=== PATIENT | male | born 1960 | race Caucasian/White ===

== ENCOUNTER 2020-06-04 06:02 | Outpatient (REF) | payer OTHER, SELFPAY | END 2020-06-04 06:03 | disposition home or self-care (01) | LOC: HO.HMGCLDS 06:02 | PROVIDERS: PCP Internal Medicine; Visit Provider Internal Medicine | DX: Z20.828 Contact with and (suspected) exposure to other viral communicable diseases (principal) | CPT/HCPCS: C9803; U0003 ==

== ENCOUNTER 2020-07-14 15:10 | Outpatient (REF) | payer OTHER, SELFPAY ==
--- NOTE | 2020-07-14 15:17 | XR_ITS ---
EXAMINATION: XR WRIST, RIGHT CLINICAL INFORMATION: G56.01 - Carpal tunnel syndrome, right upper limb COMPARISON: None TECHNIQUE: Right wrist is imaged in 4 views. FINDINGS: There is no acute or healing fracture, dislocation, destructive process. The ulnar variance is neutral. There are degenerative changes lateral carpus involving the first carpometacarpal joint and triscaphe joint. These sites show mild joint narrowing and mild subchondral sclerosis and spurring. There are no erosive changes or chondrocalcinosis. The pronator quadratus fat pad appears normal. There is a small benign oval calcification lateral soft tissues distal forearm under 5 mm. XR/XR wrist RT w scaphoid IMPRESSION: Degenerative changes lateral carpus involving first carpometacarpal joint and triscaphe joint.
== END 2020-07-14 15:11 | disposition home or self-care (01) ==
LOC: HO.HMGCX 15:10
PROVIDERS: PCP Internal Medicine; Visit Provider Nurse Practitioner Family
DX: G56.01 Carpal tunnel syndrome, right upper limb (principal)
CPT/HCPCS: 73110

== ENCOUNTER → 2020-08-13 09:10 | Outpatient (BNVA) | payer OTHER, SELFPAY | PROVIDERS: Visit Provider Orthopaedic Surgery | DX: Z76.89 Persons encountering health services in other specified circumstances (principal) ==

== ENCOUNTER 2020-09-25 10:22 | Outpatient (REF) | payer OTHER, SELFPAY ==
--- NOTE | 2020-09-25 10:25 | EMG_ITS ---
Right median and ulnar motor and sensory studies were performed. Right radial sensory study was performed and paraspinal muscles were tested. IMPRESSION: [id number] right median neuropathy across carpal tunnel. MD LAMAR Tolbert/CHAVA / [id number]
== END 2020-09-25 10:23 | disposition home or self-care (01) ==
LOC: HO.NEURO 10:22
PROVIDERS: Visit Provider Orthopaedic Surgery
DX: R20.0 Anesthesia of skin (principal); R20.2 Paresthesia of skin; M79.641 Pain in right hand
CPT/HCPCS: 95860; 95885; 95909

== ENCOUNTER 2021-01-01 11:05 | Outpatient (REF) | payer OTHER, SELFPAY ==
[2021-01-01 14:02] LABS: Estimated Average Glucose 157 mg/dL; Hemoglobin A1c % 7.1 %
[2021-01-01 14:24] LABS: Alanine Aminotransferase 47 U/L (0-40); Albumin Level 4.2 g/dL (3.5-5.0); Alkaline Phosphatase 57 U/L (39-117); Anion Gap 14 (12-20); Aspartate Amino Transferase 50 U/L (5-37); Bilirubin Total 0.8 mg/dL (0.0-1.0); Blood Urea Nitrogen 11 mg/dL (9-16); Calcium 9.5 mg/dL (8.4-10.2); Carbon Dioxide 20 mmol/L (22-29); Chloride 108 mmol/L (96-108); Cholesterol 180 mg/dL; Creatinine Urine 72.44 mg/dL; Estimated Glomerular Filt Rate > 60; Glucose Fasting 136 mg/dL (60-99); HDL Cholesterol 35 mg/dL; LDL Cholesterol Calculated 104 mg/dl; Microalbum/Creatinine Ratio Ur 16.5 ug/mg cr; Potassium 4.4 mmol/L (3.3-5.1); Sodium 138 mmol/L (135-145); Total Protein 7.8 g/dL (6.5-8.0); Triglycerides 208 mg/dL
== END 2021-01-01 11:06 | disposition home or self-care (01) ==
LOC: HO.HMGCLDS 11:05
PROVIDERS: PCP Internal Medicine; Visit Provider Internal Medicine
DX: E13.9 Other specified diabetes mellitus without complications (principal); E66.9 Obesity, unspecified; Z72.0 Tobacco use
CPT/HCPCS: 36415; 80053; 80061; 82043; 83036

== ENCOUNTER 2021-04-07 07:52 | Outpatient (REF) | payer OTHER, SELFPAY ==
[2021-04-07 12:34] LABS: Alanine Aminotransferase 48 U/L (0-40); Albumin Level 4.2 g/dL (3.5-5.0); Alkaline Phosphatase 49 U/L (39-117); Anion Gap 14 (12-20); Aspartate Amino Transferase 37 U/L (5-37); Bilirubin Total 0.7 mg/dL (0.0-1.0); Blood Urea Nitrogen 16 mg/dL (9-16); Calcium 9.5 mg/dL (8.4-10.2); Carbon Dioxide 22 mmol/L (22-29); Chloride 107 mmol/L (96-108); Estimated Glomerular Filt Rate > 60; Glucose Random 112 mg/dL (60-115); Potassium 4.2 mmol/L (3.3-5.1); Sodium 139 mmol/L (135-145); Total Protein 7.4 g/dL (6.5-8.0)
[2021-04-07 12:35] LABS: Estimated Average Glucose 126 mg/dL
== END 2021-04-07 07:53 | disposition home or self-care (01) ==
LOC: HO.HMGCLDS 07:52
PROVIDERS: PCP Internal Medicine; Visit Provider Internal Medicine
DX: E13.9 Other specified diabetes mellitus without complications (principal); E66.9 Obesity, unspecified; Z72.0 Tobacco use
CPT/HCPCS: 36415; 80053; 83036

== ENCOUNTER 2021-08-20 09:21 | Outpatient (REF) | payer OTHER, SELFPAY ==
[2021-08-20 11:45] LABS: Estimated Average Glucose 117 mg/dL; Hemoglobin A1c % 5.7 %
[2021-08-20 11:46] LABS: Alanine Aminotransferase 43 U/L (0-40); Albumin Level 4.2 g/dL (3.5-5.0); Alkaline Phosphatase 51 U/L (39-117); Anion Gap 12 (12-20); Aspartate Amino Transferase 35 U/L (5-37); Bilirubin Total 0.7 mg/dL (0.0-1.0); Blood Urea Nitrogen 17 mg/dL (9-16); Calcium 9.5 mg/dL (8.4-10.2); Carbon Dioxide 25 mmol/L (22-29); Chloride 106 mmol/L (96-108); Estimated Glomerular Filt Rate > 60; Glucose Random 104 mg/dL (60-115); Potassium 4.4 mmol/L (3.3-5.1); Sodium 139 mmol/L (135-145); Total Protein 7.5 g/dL (6.5-8.0)
== END 2021-08-20 09:22 | disposition home or self-care (01) ==
LOC: HO.HMGCLDS 09:21
PROVIDERS: PCP Internal Medicine; Visit Provider Internal Medicine
DX: E13.9 Other specified diabetes mellitus without complications (principal); E66.9 Obesity, unspecified; Z72.0 Tobacco use
CPT/HCPCS: 36415; 80053; 83036

== ENCOUNTER 2021-11-28 08:14 | Outpatient (REF) | payer OTHER, SELFPAY ==
[2021-11-28 11:25] LABS: Estimated Average Glucose 114 mg/dL; Hemoglobin A1c % 5.6 %
[2021-11-28 11:33] LABS: Alanine Aminotransferase 45 U/L (0-40); Albumin Level 4.1 g/dL (3.5-5.0); Alkaline Phosphatase 47 U/L (39-117); Anion Gap 13 (12-20); Aspartate Amino Transferase 34 U/L (5-37); Bilirubin Total 0.8 mg/dL (0.0-1.0); Blood Urea Nitrogen 17 mg/dL (9-16); Calcium 9.6 mg/dL (8.4-10.2); Carbon Dioxide 22 mmol/L (22-29); Chloride 107 mmol/L (96-108); Estimated Glomerular Filt Rate > 60; Glucose Random 105 mg/dL (60-115); Potassium 4.2 mmol/L (3.3-5.1); Sodium 138 mmol/L (135-145); Total Protein 7.1 g/dL (6.5-8.0)
[2021-11-28 11:35] LABS: Creatinine Urine 153.13 mg/dL; Microalbum/Creatinine Ratio Ur 9.1 ug/mg cr
== END 2021-11-28 08:15 | disposition home or self-care (01) ==
LOC: HO.HMGCLDS 08:14
PROVIDERS: Visit Provider Internal Medicine
DX: E13.9 Other specified diabetes mellitus without complications (principal); E66.9 Obesity, unspecified; Z72.0 Tobacco use
CPT/HCPCS: 36415; 80053; 82043; 83036

== ENCOUNTER 2022-11-04 07:36 | Outpatient (REF) | payer OTHER, SELFPAY ==
[2022-11-04 11:12] LABS: MANUAL DIFF FLAG NO
[2022-11-04 11:22] LABS: Basophils Absolute Auto 0.1 X10*3/uL (0.0-0.2); Basophils Percent Auto 1.1 % (0-2); Eosinophils Absolute Auto 0.4 X10*3/uL (0.0-0.4); Eosinophils Percent Auto 6.2 % (0-4); Hematocrit 45.1 % (42.0-52.0); Imm Gran Abs Auto 0.02 X10*3/uL (0.00-0.03); Imm Gran Pct Auto 0.3 % (0.0-0.4); Lymphocytes Absolute Auto 2.7 X10*3/uL (1.2-4.9); Lymphocytes Percent Auto 41.4 % (20-40); Mean Corpuscular HGB Conc 33.3 g/dl (31.0-36.0); Mean Corpuscular Hemoglobin 29.2 pg (27.0-33.0); Mean Corpuscular Volume 87.9 fL (80.0-98.0); Mean Platelet Volume 9.8 fL (9.4-12.4); Monocytes Absolute Auto 0.5 X10*3/uL (0.1-1.2); Monocytes Percent Auto 7.6 % (2-11); Neutrophils Absolute Auto 2.9 x10*3/uL (2.0-8.3); Neutrophils Percent Auto 43.4 % (45-73); Platelet Count 259 X10*3/uL (160-400); Red Blood Count 5.13 X10*6/uL (4.60-5.80); Red Cell Distribution Width 13.9 % (11.0-16.0); White Blood Count 6.6 X10*3/uL (4.8-10.8)
[2022-11-04 11:47] LABS: Alanine Aminotransferase 44 U/L (0-40); Alkaline Phosphatase 56 U/L (39-117); Anion Gap 13 (12-20); Aspartate Amino Transferase 33 U/L (5-37); Bilirubin Total 0.7 mg/dL (0.0-1.0); Blood Urea Nitrogen 12 mg/dL (9-16); Calcium 9.4 mg/dL (8.4-10.2); Carbon Dioxide 22 mmol/L (22-29); Chloride 109 mmol/L (96-108); Cholesterol 184 mg/dL; Estimated Glomerular Filt Rate > 60; Glucose Fasting 118 mg/dL (60-99); Glucose Random 118 mg/dL (60-115); HDL Cholesterol 37 mg/dL; LDL Cholesterol Calculated 105 mg/dl; Potassium 4.2 mmol/L (3.3-5.1); Sodium 140 mmol/L (135-145); Total Protein 7.1 g/dL (6.5-8.0); Triglycerides 210 mg/dL
[2022-11-04 11:55] LABS: Estimated Average Glucose 143 mg/dL; Hemoglobin A1c % 6.6 %
[2022-11-04 12:32] LABS: Creatinine Urine 147.49 mg/dL; Microalbum/Creatinine Ratio Ur 12.8 ug/mg cr
== END 2022-11-04 07:37 | disposition home or self-care (01) ==
LOC: HO.HMGCLDS 07:36
PROVIDERS: PCP Internal Medicine; Visit Provider Internal Medicine
DX: E13.9 Other specified diabetes mellitus without complications (principal); E66.9 Obesity, unspecified; R03.0 Elevated blood-pressure reading, without diagnosis of hypertension; Z72.0 Tobacco use
CPT/HCPCS: 36415; 80053; 80061; 82043; 83036; 85025

== ENCOUNTER 2023-02-23 09:47 | Outpatient (REF) | payer OTHER, SELFPAY ==
[2023-02-23 14:10] LABS: Estimated Average Glucose 143 mg/dL; Hemoglobin A1c % 6.6 %
[2023-02-23 14:40] LABS: Alanine Aminotransferase 43 U/L (0-40); Albumin Level 4.1 g/dL (3.5-5.0); Alkaline Phosphatase 51 U/L (39-117); Anion Gap 13 (12-20); Aspartate Amino Transferase 36 U/L (5-37); Bilirubin Total 0.4 mg/dL (0.0-1.0); Blood Urea Nitrogen 13 mg/dL (9-16); Calcium 9.7 mg/dL (8.4-10.2); Carbon Dioxide 23 mmol/L (22-29); Chloride 109 mmol/L (96-108); Estimated Glomerular Filt Rate > 60; Glucose Random 128 mg/dL (60-115); Potassium 4.5 mmol/L (3.3-5.1); Sodium 140 mmol/L (135-145); Total Protein 7.7 g/dL (6.5-8.0)
== END 2023-02-23 09:48 | disposition home or self-care (01) ==
LOC: HO.HMGCLDS 09:47
PROVIDERS: PCP Internal Medicine; Visit Provider Internal Medicine
DX: Z00.01 Encounter for general adult medical examination with abnormal findings (principal); E66.9 Obesity, unspecified; E13.9 Other specified diabetes mellitus without complications
CPT/HCPCS: 36415; 80053; 83036

== ENCOUNTER 2023-03-15 09:01 | Outpatient (AMB) | payer OTHER, SELFPAY ==
[2023-03-15 09:03] VITALS: BP 142/90; PULSE 83; O2SAT 96; BMI 35.7
--- NOTE | 2023-03-15 09:03 | MHC.PC.OV ---
Vital Signs 03/15/23 09:03 Height 5 ft 7 in Weight 228 lb 2 oz BMI 35.7 BP 142/90 H Blood Pressure Location Rt brachial Position Sitting Pulse 83 Pulse Source Pulse Oximeter Pulse Oximetry (%) 96 Oxygen Delivery Method Room Air Intake Visit Reasons: 4 month follow up DM Allergies No Known Allergies [No Known Allergies*] Allergy (Verified 03/15/23 09:05) Medication List - Last Reconciled 03/15/23 by Yemi Vinson MD lisinopril 2.5 mg PO DAILY 90 days metformin 1,000 mg PO ONCE 90 days Tobacco use date assessed: 03/15/23 Dental Screening Dental Screen Date: 03/15/23 Did you have a dental visit in the last 12 months?: Yes Did you have a dental problem in the last 6 months where you did not have access to dental care?: No Was dental information given to patient?: No HPI 4 month follow up DM HPI Details Patient is 61-year-old gentleman came in today for his regular follow-up appointment Labs done recently reviewed with the patient Diabetes: Continue metformin 1 g daily hemoglobin A1c is 6.6 Patient is tolerating medication no side effects no diarrhea no abdominal pain.. He has stopped smoking. His blood pressure is elevated today 142/90 I am increasing lisinopril to 5 mg currently patient is on 2.5 mg Also instructed patient to avoid extra salt in his diet LFTs are stable Need to lose weight , he has lost weight since seen last Follow-up 4 months, labs are needed before next visit [facility] Medical History Diabetes 1.5, managed as type 2 History of prediabetes Obesity (BMI 30-39.9) Tobacco abuse Surgical History History of appendectomy Social History Housing: House Alcohol intake: current Alcohol intake frequency: holidays/special occasions only Patient Tobacco Use Status: Current everyday Tobacco user Cigarette Packs Per Day: 1 e-Cigarette/Vaping Use: Never Used service: No Current occupational status: employed 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 How often do you have a drink containing alcohol?: Never 3. How often do you have six or more drinks on one occasion?: Never Total Score: 0 Score Reviewed/Action Taken: Yes SUSI-7 AMB Questionnaire SUSI-7 Date SUSI - 7 assessed: 09/11/21 Source: Developed by Drs. Serafin Sanchez, Luna Guy, Teto Boyle and colleagues, with an educational swathi from [employer]. Review of Systems Const Denies chills and Denies fever(s) ENT Denies epistaxis and Denies nasal discharge Card Denies chest pain Resp Denies chest congestion, Denies cough and Denies hemoptysis GI Denies diarrhea and Denies nausea Skin/Breast Denies rash Neuro Reports no additional complaints Psych Reports no additional complaints Endo Reports no additional complaints Physical exam (Primary Care) Vital Signs: Last Vital Signs Pulse 83 03/15/23 09:03 BP 142/90 H 03/15/23 09:03 Pulse Ox 96 03/15/23 09:03 Oxygen Delivery Method Room Air 03/15/23 09:03 BMI result Body Mass Index 35.7 Tobacco/Smoking Status: Tobacco use Status Tobacco use date assessed 03/15/23 03/15/23 09:06 Patient Tobacco Use Status Current everyday Tobacco 03/15/23 09:06 e-Cigarette/Vaping Use Never Used 03/15/23 09:06 Thrive Assessment: Date of Thrive Assessment Date Thrive assessed 09/11/21 03/15/23 09:06 Const General: cooperative, comfortable and no acute distress Orientation/consciousness: patient oriented x3 [facility] Head: Yes normocephalic Eyes General: appearance normal, both eyes and all related structures Neck Neck: Yes supple Resp Effort & Inspection: normal respiratory effort, no cough and no stridor Cardio Rhythm: regular rhythm Heart sounds: S1 normal heart sound present and S2 normal heart sound present Skin General skin exam: turgor normal Neuro General: patient oriented x3, tone normal and moves all extremities Extrem Right lower extremity: no edema Left lower extremity: no edema Assessment and Plan Assessment & Plan (1) Diabetes 1.5, managed as type 2: Code(s): E13.9 - Other specified diabetes mellitus without complications (2) Obesity (BMI 30-39.9): Code(s): E66.9 - Obesity, unspecified (3) Elevated blood pressure reading: Code(s): R03.0 - Elevated blood-pressure reading, without diagnosis of hypertension (4) LFT elevation: Code(s): R79.89 - Other specified abnormal findings of blood chemistry (5) Ex-smoker: Code(s): Z87.891 - Personal history of nicotine dependence Plan Patient is 61-year-old gentleman came in today for his regular follow-up appointment Labs done recently reviewed with the patient Diabetes: Continue metformin 1 g daily hemoglobin A1c is 6.6 Patient is tolerating medication no side effects no diarrhea no abdominal pain.. He has stopped smoking. His blood pressure is elevated today 142/90 I am increasing lisinopril to 5 mg currently patient is on 2.5 mg Also instructed patient to avoid extra salt in his diet LFTs are stable Need to lose weight , he has lost weight since seen last Follow-up 4 months, labs are needed before next visit Orders: Orders Comprehensive Met. Panel 3 Months E13.9 - Other specified diabetes mellitus without complications, E66.9 - Obesity, unspecified, R03.0 - Elevated blood-pressure reading, without diagnosis of hypertension, R79.89 - Other specified abnormal findings of blood chemistry Hemoglobin A1c 3 Months E13.9 - Other specified diabetes mellitus without complications, E66.9 - Obesity, unspecified, R03.0 - Elevated blood-pressure reading, without diagnosis of hypertension, R79.89 - Other specified abnormal findings of blood chemistry LDL Cholesterol Direct 3 Months E13.9 - Other specified diabetes mellitus without complications, E66.9 - Obesity, unspecified, R03.0 - Elevated blood-pressure reading, without diagnosis of hypertension, R79.89 - Other specified abnormal findings of blood chemistry Microalbumin, Random (w Creat) 3 Months E13.9 - Other specified diabetes mellitus without complications, E66.9 - Obesity, unspecified, R03.0 - Elevated blood-pressure reading, without diagnosis of hypertension, R79.89 - Other specified abnormal findings of blood chemistry Medications: Changed From lisinopril 2.5 mg PO DAILY 90 days 90 tabs 0RF To lisinopril 5 mg PO DAILY 90 tabs 0RF High blood pressure 90 days Coding Level of Care Code Est Pt Level 4 (56853) Diagnoses Diabetes 1.5, managed as type 2 E13.9 Obesity (BMI 30-39.9) E66.9 Elevated blood pressure reading R03.0 LFT elevation R79.89 Ex-smoker Z87.891
== END 2023-03-15 09:19 | disposition home or self-care (01) ==
PROVIDERS: Visit Provider Internal Medicine
DX: E13.9 Other specified diabetes mellitus without complications (principal); E66.9 Obesity, unspecified; Z68.35 Body mass index [BMI] 35.0-35.9, adult; Z87.891 Personal history of nicotine dependence; R03.0 Elevated blood-pressure reading, without diagnosis of hypertension; R79.89 Other specified abnormal findings of blood chemistry
CPT/HCPCS: 99214

== ENCOUNTER 2023-04-28 12:04 | Outpatient (AMB) | payer OTHER, SELFPAY ==
--- NOTE | 2023-04-28 12:21 | A.OFFVIS_ITS ---
Intake Vital Signs 04/28/23 12:27 Height 5 ft 7 in BP 122/85 Blood Pressure Location Lt brachial Position Sitting Pulse 88 Intake Visit Reasons: Colonoscopy Screening Intake Note: Patient new consult for 2nd pre colonoscopy screening. Patient denies any GI issues. Sap Basis Architect Required: No Accompanied by: Self / Same As Patient Allergies No Known Allergies [No Known Allergies*] Allergy (Verified 04/28/23 12:20) Medication List - Last Reconciled 04/28/23 by Marisa Cleveland PA-C lisinopril 5 mg PO DAILY 90 days metformin 1,000 mg PO ONCE 90 days HPI HPI Comments History of Present Illness Details A 62 y/o male hx of adenoma 2012- Bijan Izquierdo- referred for colonoscopy Bowels are normal Appetite good Works [employer]- No cardiac or respiratory issues No nausea, vomiting, hematemesis, hematochezia fever chills PFSH Medical History Tobacco abuse Obesity (BMI 30-39.9) Diabetes 1.5, managed as type 2 History of prediabetes Surgical History History of appendectomy Social History Housing: House Alcohol intake: current Alcohol intake frequency: holidays/special occasions only Patient Tobacco Use Status: Current everyday Tobacco user Cigarette Packs Per Day: 1 e-Cigarette/Vaping Use: Never Used service: No Current occupational status: employed 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 Cognitive needs: No Hearing needs: No Vision needs: No Review of Systems Const All systems reviewed & are unremarkable except as noted in HPI and below Card Denies chest pain and Denies dyspnea Resp Denies dyspnea GI Denies abdominal pain, Denies change in bowel habits, Denies nausea and Denies vomiting Physical Exam Vital Signs: Last Vital Signs Pulse 88 04/28/23 12:27 BP 122/85 04/28/23 12:27 Const General: cooperative, healthy appearing, comfortable and no acute distress Orientation/consciousness: patient oriented x3 Limitations: no limitations Eyes Sclerae: sclerae normal Resp Effort & Inspection: normal respiratory effort and able to speak in complete sentences Auscultation: clear to auscultation bilaterally, no rales, no rhonchi and no wheezes Cardio Rate: regular rate Rhythm: regular rhythm Heart sounds: S1 normal heart sound present and S2 normal heart sound present GI Palpation (GI): Soft to palpation and nontender Auscultation: normal bowel sounds Skin General skin exam: no rashes or lesions noted Neuro General: patient oriented x3 Extrem General: Yes full ROM Psych Appearance: grossly normal and well kempt Mental Status: mental status grossly normal Speech and movement: Normal speech and movement present and Clear speech present Affect: normal affect Attitude: cooperative Thought process: Normal thought process present Thought content: Normal thought content present Insight: Good insight present (Psych) Judgement: Good judgement present (Psych) Assessment & Plan Assessment & Plan (1) Tubular adenoma: Comment: 2013- Dr. Thakkar Code(s): D36.9 - Benign neoplasm, unspecified site (2) Diverticulosis: Code(s): K57.90 - Diverticulosis of intestine, part unspecified, without perforation or abscess without bleeding Plan: ER protocol Plan colonoscopy- MG split prep omit metformin corina before and morning of- procedure Orders: Orders Colonoscopy - GI Use Only Today D36.9 - Benign neoplasm, unspecified site Medications: New polyethylene glycol 3350 (Miralax) Take as directed by mouth the day before your procedure. 238 grams PO ONCE PRN 238 grams 0RF laxative effect 1 day bisacodyl (Dulcolax (bisacodyl)) Day before procedure, prep day Take 4 tablets by mouth upon awakening followed by large glass of water 20 mg (4 x 5 mg) PO ONCE 4 tabs 0RF colonoscopy prep 1 day Z12.11 - Encounter for screening for malignant neoplasm of colon Patient Instructions: History of colon polyps Reviewed polyp surveillance colonoscopy need for escort as well as rare risks Prep literature given Reviewed medications omit metformin evening before as well as morning of procedure Diverticulosis/diverticulitis ER protocol review Maintain high-fiber diet Encouraged to call with questions or concerns Coding Level of Care Code New Pt Level 3 (06503) Diagnoses Tubular adenoma D36.9 Diverticulosis K57.90 Time Spent (min) 30
[2023-04-28 12:27] VITALS: BP 122/85; PULSE 88
== END 2023-04-28 14:09 | disposition home or self-care (01) ==
PROVIDERS: PCP Internal Medicine; Visit Provider Physician Assistant
DX: D36.9 Benign neoplasm, unspecified site (principal); K57.90 Diverticulosis of intestine, part unspecified, without perforation or abscess without bleeding
CPT/HCPCS: 99203

== ENCOUNTER → 2023-04-28 12:04 | Outpatient (BNVA) | payer OTHER, SELFPAY | PROVIDERS: PCP Internal Medicine; Visit Provider Physician Assistant ==

== ENCOUNTER 2023-05-26 13:32 | Outpatient (REF) | payer OTHER, SELFPAY ==
[2023-05-26 16:28] LABS: Estimated Average Glucose 131 mg/dL; Hemoglobin A1c % 6.2 % (<6.0)
[2023-05-26 16:39] LABS: Alanine Aminotransferase 36 U/L (0-40); Albumin Level 4.2 g/dL (3.5-5.0); Alkaline Phosphatase 50 U/L (39-117); Anion Gap 14 (12-20); Aspartate Amino Transferase 29 U/L (5-37); Bilirubin Total 0.5 mg/dL (0.0-1.0); Blood Urea Nitrogen 10 mg/dL (9-16); Calcium 9.8 mg/dL (8.4-10.2); Carbon Dioxide 27 mmol/L (22-29); Chloride 103 mmol/L (96-108); Estimated Glomerular Filt Rate > 60; Glucose Random 102 mg/dL (60-115); Potassium 4.3 mmol/L (3.3-5.1); Sodium 140 mmol/L (135-145); Total Protein 7.7 g/dL (6.5-8.0)
[2023-05-26 16:55] LABS: Creatinine Urine 63.98 mg/dL; Microalbum/Creatinine Ratio Ur 18.7 ug/mg cr (<30)
[2023-05-28 02:33] LABS: LDL Cholesterol Direct 107 mg/dL (<100)
== END 2023-05-26 13:33 | disposition home or self-care (01) ==
LOC: HO.HMGCLDS 13:32
PROVIDERS: PCP Internal Medicine; Visit Provider Internal Medicine
DX: E13.9 Other specified diabetes mellitus without complications (principal); E66.9 Obesity, unspecified; R03.0 Elevated blood-pressure reading, without diagnosis of hypertension; R79.89 Other specified abnormal findings of blood chemistry; Z72.0 Tobacco use
CPT/HCPCS: 36415; 80053; 82043; 82570; 83036; 83721

== ENCOUNTER 2023-07-05 09:40 | Outpatient (AMB) | payer OTHER, SELFPAY ==
[2023-07-05 09:49] VITALS: BP 120/80; PULSE 87; O2SAT 95; BMI 34.9
--- NOTE | 2023-07-05 09:49 | A.OFFPC_ITS ---
Vital Signs 07/05/23 09:49 Height 5 ft 7 in Weight 223 lb 2 oz BMI 34.9 BP 120/80 Blood Pressure Location Rt brachial Position Sitting Pulse 87 Pulse Source Pulse Oximeter Pulse Oximetry (%) 95 Oxygen Delivery Method Room Air Intake Visit Reasons: 4 month follow up DM Allergies No Known Allergies [No Known Allergies*] Allergy (Verified 07/05/23 09:51) Medication List - Last Reconciled 07/05/23 by Yemi Vinson MD bisacodyl (Dulcolax (bisacodyl)) 20 mg (4 x 5 mg) PO ONCE 1 day lisinopril 5 mg PO DAILY 90 days metformin 1,000 mg PO ONCE 90 days Tobacco use date assessed: 07/05/23 Dental Screening Dental Screen Date: 07/05/23 Did you have a dental visit in the last 12 months?: Yes Did you have a dental problem in the last 6 months where you did not have access to dental care?: No Was dental information given to patient?: Patient has dentist HPI 4 month follow up DM HPI Details Patient is 63-year-old gentleman came in today for his regular follow- up appointment Patient has developed left tennis elbow with ulnar neuropathy. Patient says that he accidentally banged his elbow and since then when he leaned on it he feels shooting pain. Patient says that symptoms are not that severe he will take it easy for few days and see if it improves Diabetes: Continue metformin 1 g daily hemoglobin A1c is stable Patient is tolerating medication no side effects no diarrhea no abdominal pain.. He has started smoking again, he has been smoking for years I have ordered pulmonary function test with the patient. Blood pressure is stable, patient is taking lisinopril 5 mg LFTs are stable Obesity with BMI 34.9, need to lose weight further He has developed an actinic keratosis right abdomen I have placed a referral to Dermatology for evaluation Follow-up 3 months labs are needed before visit fasting [facility] Medical History Tobacco abuse Obesity (BMI 30-39.9) Diabetes 1.5, managed as type 2 History of prediabetes Surgical History History of appendectomy Social History Housing: House Alcohol intake: current Alcohol intake frequency: holidays/special occasions only Patient Tobacco Use Status: Current everyday Tobacco user Cigarette Packs Per Day: 1 e-Cigarette/Vaping Use: Never Used service: No Current occupational status: employed 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 1. Little interest or pleasure in doing things: not at all 2. Feeling down, depressed, or hopeless: not at all 3. Trouble falling or staying asleep, or sleeping too much: not at all 4. Feeling tired or having little energy: not at all 5. Poor appetite or overeating: not at all 6. Feeling bad about yourself - or that you are a failure or have let yourself or your family down: not at all 7. Trouble concentrating on things, such as reading the newspaper or watching television: not at all 8. Moving or speaking so slowly that other people could have noticed. Or the opposite - being so fidgety or restless that you have been moving around a lot more than usual: not at all 9. Thoughts that you would be better off or of hurting yourself in some way: not at all Total score: 0 Depression Screening Interpretation: Negative Depression Screening Done: Yes 73129 - PHQ-9 Billing: Yes Source: Developed by Drs. Serafin Sanchez, Luna Guy, Teto Boyle and colleagues, with an educational swathi from [employer]. Thrive Questionnaire Date Thrive assessed: 09/11/21 AUDIT C Alcohol Use Questionnaire (AUDIT-C) 1. How often do you have a drink containing alcohol?: Monthly or less 2. How many drinks containing alcohol do you have on a typical day when you are drinking?: 1 or 2 3. How often do you have six or more drinks on one occasion?: Never Total Score: 1 Score Reviewed/Action Taken: Yes SUSI-7 AMB Questionnaire SUSI-7 Date SUSI - 7 assessed: 07/05/23 Feeling nervous, anxious, or on edge: 0 = Not at all Not being able to stop or control worryin = Several days Worrying too much about different things: 0 = Not at all Trouble relaxin = Not at all Being so restless that it is hard to sit still: 0 = Not at all Becoming easily annoyed or irritable: 0 = Not at all Feeling afraid as if something awful might happen: 0 = Not at all Total SUSI-7 score (0-4 normal; 5-9 mild; 10-14 moderate; 15-21 severe): 1 Source: Developed by Drs. Serafin Sanchez, Luna Guy, Teto Boyle and colleagues, with an educational swathi from [employer]. SUSI-7 Assessment Billing SUSI-7 Assessment Tool: SUSI-7 Assessment 00821 Review of Systems Const Denies chills and Denies fever(s) ENT Denies epistaxis and Denies nasal discharge Card Denies chest pain Resp Denies chest congestion, Denies cough and Denies hemoptysis GI Denies diarrhea and Denies nausea Skin/Breast Denies rash Neuro Reports no additional complaints Psych Reports no additional complaints Endo Reports no additional complaints Physical exam (Primary Care) Vital Signs: Last Vital Signs Pulse 87 07/05/23 09:49 BP 120/80 07/05/23 09:49 Pulse Ox 95 07/05/23 09:49 Oxygen Delivery Method Room Air 07/05/23 09:49 BMI result Body Mass Index 34.9 Tobacco/Smoking Status: Tobacco use Status Tobacco use date assessed 07/05/23 07/05/23 09:54 Patient Tobacco Use Status Current everyday Tobacco 07/05/23 09:54 e-Cigarette/Vaping Use Never Used 07/05/23 09:54 PHQ-9: PHQ-9 Score PHQ-9: Total score 0 07/05/23 10:59 Depression Screening Interpretation: Negative Thrive Assessment: Date of Thrive Assessment Date Thrive assessed 09/11/21 07/05/23 09:54 Const General: cooperative, comfortable and no acute distress Orientation/consciousness: patient oriented x3 HENMT Head: Yes normocephalic Eyes General: appearance normal, both eyes and all related structures Neck Neck: Yes supple Resp Effort & Inspection: normal respiratory effort, no cough and no stridor Cardio Rhythm: regular rhythm Heart sounds: S1 normal heart sound present and S2 normal heart sound present Skin General skin exam: turgor normal Neuro General: patient oriented x3, tone normal and moves all extremities Extrem Other: Pain with pressure over ulnar nerve left side Right lower extremity: no edema Left lower extremity: no edema Results AMB Hemoglobin A1c AMB Hemoglobin A1c 6.5 % Last Edit by Libra Yeh CMA on 07/05/23 10:31 Results Reviewed Results Reviewed: Laboratory Last Values Hgb A1c (Clinic) 6.5 % (4.0-6.0) H 07/05/23 10:29 Assessment and Plan Assessment & Plan (1) Diabetes mellitus type 2 in obese: Code(s): E11.69 - Type 2 diabetes mellitus with other specified complication; E66.9 - Obesity, unspecified (2) Nicotine dependence: Code(s): F17.200 - Nicotine dependence, unspecified, uncomplicated Qualifiers: Nicotine product type: cigarettes Substance use status: uncomplicated Qualified Code(s): F17.210 - Nicotine dependence, cigarettes, uncomplicated (3) LFT elevation: Code(s): R79.89 - Other specified abnormal findings of blood chemistry (4) Left tennis elbow: Code(s): M77.12 - Lateral epicondylitis, left elbow (5) Ulnar neuropathy of left upper extremity: Code(s): G56.22 - Lesion of ulnar nerve, left upper limb (6) Skin cancer screening: Code(s): Z12.83 - Encounter for screening for malignant neoplasm of skin Plan Patient is 63-year-old gentleman came in today for his regular follow-up appointment Patient has developed left tennis elbow with ulnar neuropathy. Patient says that he accidentally banged his elbow and since then when he leaned on it he feels shooting pain. Patient says that symptoms are not that severe he will take it easy for few days and see if it improves Diabetes: Continue metformin 1 g daily hemoglobin A1c is stable Patient is tolerating medication no side effects no diarrhea no abdominal pain.. He has started smoking again, he has been smoking for years I have ordered pulmonary function test with the patient. Blood pressure is stable, patient is taking lisinopril 5 mg LFTs are stable Obesity with BMI 34.9, need to lose weight further He has developed an actinic keratosis right abdomen I have placed a referral to Dermatology for evaluation Follow-up 3 months labs are needed before visit fasting Orders: Orders Microalbumin, Random (w Creat) 3 Months E11.69 - Type 2 diabetes mellitus with other specified complication, E66.9 - Obesity, unspecified, F17.200 - Nicotine dependence, unspecified, uncomplicated, G56.22 - Lesion of ulnar nerve, left upper limb, M77.12 - Lateral epicondylitis, left elbow, R79.89 - Other specified abnormal findings of blood chemistry Complete Blood Count Auto Diff 3 Months .69 - Type 2 diabetes mellitus with other specified complication, E66.9 - Obesity, unspecified, F17.200 - Nicotine dependence, unspecified, uncomplicated, G56.22 - Lesion of ulnar nerve, left upper limb, M77.12 - Lateral epicondylitis, left elbow, R79.89 - Other specified abnormal findings of blood chemistry Comprehensive [place]. Panel Fast 3 Months . - Type 2 diabetes mellitus with other specified complication, E66.9 - Obesity, unspecified, F17.200 - Nicotine dependence, unspecified, uncomplicated, G56.22 - Lesion of ulnar nerve, left upper limb, M77.12 - Lateral epicondylitis, left elbow, R79.89 - Other specified abnormal findings of blood chemistry Lipid Panel 3 Months . - Type 2 diabetes mellitus with other specified complication, E66.9 - Obesity, unspecified, F17.200 - Nicotine dependence, unspecified, uncomplicated, G56.22 - Lesion of ulnar nerve, left upper limb, M77.12 - Lateral epicondylitis, left elbow, R79.89 - Other specified abnormal findings of blood chemistry PFT pulmonary function test Today F17.200 - Nicotine dependence, unspecified, uncomplicated AMB Hemoglobin A1c Today . - Type 2 diabetes mellitus with other specified complication, E66.9 - Obesity, unspecified Referrals Dermatology Referral Z12.83 - Encounter for screening for malignant neoplasm of skin Coding Level of Care Code Est Pt Level 4 (52012) Diagnoses Diabetes mellitus type 2 in obese E11.69; E66.9 Cigarette nicotine dependence without complication F17.210 Nicotine product type: cigarettes Substance use status: uncomplicated LFT elevation R79.89 Left tennis elbow M77.12 Ulnar neuropathy of left upper extremity G56.22 Skin cancer screening Z12.83 Additional Codes SUSI-7 Assessment Billing - SUSI-7 Assessment Tool: SUSI-7 Assessment [id number] ([id number])
== END 2023-07-05 10:26 | disposition home or self-care (01) ==
PROVIDERS: PCP Internal Medicine; Visit Provider Internal Medicine
DX: E11.69 Type 2 diabetes mellitus with other specified complication (principal); E66.9 Obesity, unspecified; F17.210 Nicotine dependence, cigarettes, uncomplicated; Z68.34 Body mass index [BMI] 34.0-34.9, adult; R79.89 Other specified abnormal findings of blood chemistry; M77.12 Lateral epicondylitis, left elbow; G56.22 Lesion of ulnar nerve, left upper limb; Z12.83 Encounter for screening for malignant neoplasm of skin
CPT/HCPCS: 83036; 99214

== ENCOUNTER 2023-09-23 08:53 | Outpatient (REF) | payer OTHER, SELFPAY ==
[2023-09-23 11:22] LABS: MANUAL DIFF FLAG NO
[2023-09-23 11:33] LABS: Basophils Absolute Auto 0.1 X10*3/uL (0.0-0.2); Basophils Percent Auto 1.5 % (0-2); Eosinophils Absolute Auto 0.5 X10*3/uL (0.0-0.4); Eosinophils Percent Auto 7.8 % (0-4); Hematocrit 44.5 % (42.0-52.0); Hemoglobin 14.8 g/dl (14.0-18.0); Imm Gran Abs Auto 0.03 X10*3/uL (0.00-0.03); Imm Gran Pct Auto 0.5 % (0.0-0.4); Lymphocytes Absolute Auto 2.4 X10*3/uL (1.2-4.9); Lymphocytes Percent Auto 36.4 % (20-40); Mean Corpuscular HGB Conc 33.3 g/dl (31.0-36.0); Mean Corpuscular Hemoglobin 29.8 pg (27.0-33.0); Mean Corpuscular Volume 89.7 fL (80.0-98.0); Mean Platelet Volume 10.4 fL (9.4-12.4); Monocytes Absolute Auto 0.6 X10*3/uL (0.1-1.2); Monocytes Percent Auto 9.2 % (2-11); Neutrophils Percent Auto 44.6 % (45-73); Platelet Count 233 X10*3/uL (160-400); Red Blood Count 4.96 X10*6/uL (4.60-5.80); Red Cell Distribution Width 13.6 % (11.0-16.0); White Blood Count 6.6 X10*3/uL (4.8-10.8)
[2023-09-23 11:58] LABS: Alanine Aminotransferase 46 U/L (0-40); Albumin Level 4.1 g/dL (3.5-5.0); Alkaline Phosphatase 50 U/L (39-117); Anion Gap 10 (12-20); Aspartate Amino Transferase 38 U/L (5-37); Bilirubin Total 0.7 mg/dL (0.0-1.0); Blood Urea Nitrogen 13 mg/dL (9-16); Calcium 9.4 mg/dL (8.4-10.2); Carbon Dioxide 23 mmol/L (22-29); Chloride 110 mmol/L (96-108); Estimated Glomerular Filt Rate > 60; Glucose Fasting 147 mg/dL (60-99); Potassium 4.3 mmol/L (3.3-5.1); Sodium 139 mmol/L (135-145); Total Protein 7.6 g/dL (6.5-8.0)
[2023-09-23 12:04] LABS: Creatinine Urine 128.34 mg/dL; Microalbum/Creatinine Ratio Ur 18.7 ug/mg cr (<30)
== END 2023-09-23 08:54 | disposition home or self-care (01) ==
LOC: HO.HMGCLDS 08:53
PROVIDERS: PCP Internal Medicine; Visit Provider Internal Medicine
DX: E11.69 Type 2 diabetes mellitus with other specified complication (principal); E66.9 Obesity, unspecified; R79.89 Other specified abnormal findings of blood chemistry; M77.12 Lateral epicondylitis, left elbow; G56.22 Lesion of ulnar nerve, left upper limb; F17.200 Nicotine dependence, unspecified, uncomplicated
CPT/HCPCS: 36415; 80053; 82043; 82570; 85025

== ENCOUNTER 2023-10-04 06:47 | Day surgery (SDC) | payer OTHER, SELFPAY ==
[2023-09-30 14:20] VITALS: BMI 34.9
--- NOTE | 2023-10-03 13:16 | HO.ANESPROP2 ---
Documented by User: Sugar Heard NP 10/03/23 13:17 HPI - Anesthesia Eval Consult details Narrative: 63yo M for Colonoscopy PMFSH Active Problems Active Problems: All Active Problems (Updated 09/30/23 @ 14:21 by Eduarda Bowen, UDAY) Skin cancer screening (Acute) Ulnar neuropathy of left upper extremity (Acute) Left tennis elbow (Acute) Nicotine dependence (Acute) Diabetes mellitus type 2 in obese (Acute) Diverticulosis (Acute) Ex-smoker (Acute) LFT elevation (Acute) Encounter for general adult medical examination with abnormal findings (Acute) Colon cancer screening (Acute) Tubular adenoma (Acute) Elevated blood pressure reading (Acute) Right hand pain (Acute) Numbness and tingling in right hand (Acute) Carpal tunnel syndrome, right (Acute) Tobacco abuse (Acute) Obesity (BMI 30-39.9) (Acute) Diabetes 1.5, managed as type 2 (Acute) Past Medical History Medical History HTN (hypertension) Tobacco abuse Obesity (BMI 30-39.9) Diabetes 1.5, managed as type 2 History of prediabetes Surgical History Surgical History H/O colonoscopy History of appendectomy Social History Social History Housing: House Alcohol intake: current Alcohol intake frequency: holidays/special occasions only Patient Tobacco Use Status: Current everyday Tobacco user Cigarette Packs Per Day: 1 e-Cigarette/Vaping Use: Never Used Use of substances other than those prescribed or required for medical reasons: Yes Are you DNR?: No Advance Directives: No Advance Directives Information Provided: Yes service: No Current occupational status: employed 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 Cognitive needs: No Hearing needs: No Vision needs: No Meds Allergies Allergy/AdvReac Type Severity Reaction Status Date / Time No Known Allergies Allergy Verified 10/04/23 07:12 [No Known Allergies*] Exam Height,Weight and Vital Signs: Height 5 ft 7 in Weight 101.151 kg Assessment and Plan Assessment Anesthesia Assessment: Chart Reviewed Documented by User: Danika Bowen MD 10/04/23 08:00 PMFSH Past Medical History Medical History HTN (hypertension) Tobacco abuse Obesity (BMI 30-39.9) Diabetes 1.5, managed as type 2 History of prediabetes Family History Family history of problems with anesthesia: No Surgical History Surgical History H/O colonoscopy History of appendectomy History of Problems with Anesthesia: No Social History Social History Housing: House Alcohol intake: current Alcohol intake frequency: holidays/special occasions only Patient Tobacco Use Status: Current everyday Tobacco user Cigarette Packs Per Day: 1 e-Cigarette/Vaping Use: Never Used Use of substances other than those prescribed or required for medical reasons: Yes Are you DNR?: No Advance Directives: No Advance Directives Information Provided: Yes service: No Current occupational status: employed 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 Cognitive needs: No Hearing needs: No Vision needs: No Meds Allergies Allergy/AdvReac Type Severity Reaction Status Date / Time No Known Allergies Allergy Verified 10/04/23 07:12 [No Known Allergies*] Exam Airway Mallampati Class: III TM Dist: >3cm Neck ROM: Full Denture: Upper and Lower Assessment and Plan Assessment Anesthesia Assessment: Anesthesia Plan Discussed Final Anesthetic Review Family History of Problems with Anesthesia: No History of Problems with Anesthesia: No NPO: Yes ASA Class: III Final Preanesthetic Review: No Changes in Pt Med Stat, Meds/Allgs Chart Reviewed, Consent Obtained/Reviewed and Anes Risks/Benef Reviewed Patient Risk: Intermediate Procedure Risk: Low Anesthetic Plan Anesthetic Plan: TIVA Disposition: Standard PACU
[2023-10-04 07:38] VITALS: BP 139/93; PULSE 90; RESP 18; TEMP 36.4; O2SAT 94
[2023-10-04 07:40] LABS: Glucose, Whole Blood 159 mg/dL (60-115)
--- NOTE | 2023-10-04 08:01 | MHC.SHP ---
Pre-Procedural Eval Section A - 24 Hr Update-Section A only Date of Service: 10/04/23 Section B - Complete if H&P > 30 days Chief Complaint: screening Relevant Family History (Specify if Yes): No Relevant Social History: Tobacco Use Present Medications: None Medical History: Significant History (Tobacco abuse Obesity (BMI 30-39.9) Diabetes 1.5, managed as type 2 History of prediabetes) History of Previous Operations: Relevant previous surgery/procedure and date(s) (History of appendectomy) Allergies: Allergies Allergy/AdvReac Type Severity Reaction Status Date / Time No Known Allergies Allergy Verified 10/04/23 07:12 [No Known Allergies*] Review of Systems Sugical H&P ROS: Negative: Constitution, Cardiovascular, Respiratory, Neurological, Psychiatric, Hem-Onc, Allergic/Immunologic, Gastrointestinal, Genitourinary, Musculoskeletal, Integumentary, Endocrine and Eyes/Ears/Nose/Throat Exam Surgical H&P Exam: Normal: HEENT, Normal: Heart, Normal: Lungs, Normal: Extremities, Normal: Abdomen, Normal: Skin and Normal: Neurological Plan Diagnosis/Plan: Unchanged I have reviewed the history and physical and performed a pertinent physical examination on my patient. No changes have occurred unless specified. Time Spent With Patient Time: Total time managing care of this patient today ____ minutes.
--- NOTE | 2023-10-04 08:03 | W.PM.OPN ---
Operative Note Operative Note Date of Service: 10/04/23 Narrative: Operative Information Procedure Description: Colonoscopy Indication: screening Anesthesia: MAC COLONOSCOPY Instrument: Olympus variable stiffness pediatric scope 190L Colonoscopy Monitoring: Vital signs and clinical assessment, continuous EKG monitoring, Pulse oximetry, Carbon Dioxide monitoring and blood pressure monitoring were done throughout the procedure. Colon withdrawal time was 6 minutes. Procedure: The patient was placed in the left lateral decubitis position and pre-procedure medications were administered. After a digital rectal examination of the ano-rectum, the video colonoscope was inserted into the rectum and advanced through the colon to the cecum/TI. The colonoscope was slowly withdrawn in a retrograde panoramic fashion and the colon mucosa was carefully examined including a retroflexed view of the rectum. Findings and interventions are described below. Procedure Difficulty: easy Findings: Terminal Ileum-normal Cecum: severe diverticulosis Ascending Colon: severe diverticulosis Transverse Colon - scattered diverticulosis Descending Colon: severe diverticulosis Sigmoid Colon:severe diverticulosis with luminal hypertrophy Rectum: Retroflexion with small internal hemorrhoids seen, grade I Anorectum - normal Intervention: none Colon preparation: Brinson Bowel Preparation Scale Right colon; 2 Transverse colon: 2 Left colon; 1-2 (0 = Unprepared colon segment with mucosa not seen due to solid stool that cannot be cleared. 1 = Portion of mucosa of the colon segment seen, but other areas of the colon segment not well seen due to staining, residual stool and/or opaque liquid. 2 = Minor amount of residual staining, small fragments of stool and/or opaque liquid, but mucosa of colon segment seen well. 3 = Entire mucosa of colon segment seen well with no residual staining, small fragments of stool or opaque liquid) Impression and Post Procedure Diagnosis: diverticulosis internal hemorrhoids Plan: High fiber diet leaflet Avoid straining at stool, epsom salts and sitz bath, anusol supps or cream Repeat Colonoscopy in 5 years due to fair prep on left or earlier if clinically indicated Above findings were reviewed with the patient and relevant handouts were provided if indicated.
[2023-10-04 08:30] VITALS: BP 110/75; PULSE 85; RESP 15; TEMP 36.8; O2SAT 94
[2023-10-04 08:45] VITALS: BP 119/82; PULSE 84; RESP 16; TEMP 36.8; O2SAT 96
== END 2023-10-04 09:46 | disposition home or self-care (01) ==
PROVIDERS: PCP Internal Medicine; Visit Provider Internal Medicine Gastroenterology
PROC: 0DJD8ZZ Inspection of Lower Intestinal Tract, Via Natural or Artificial Opening Endoscopic (ICD-10-PCS; CPT 45378; principal; 2023-10-04 08:10)
DX: Z12.11 Encounter for screening for malignant neoplasm of colon (principal); K57.30 Diverticulosis of large intestine without perforation or abscess without bleeding; K64.0 First degree hemorrhoids; K56.2 Volvulus; Z86.010 Personal history of colon polyps; E11.9 Type 2 diabetes mellitus without complications
CPT/HCPCS: 45378; 82947; J2704

== ENCOUNTER → 2023-10-04 06:47 | Outpatient (BNV) | payer OTHER, SELFPAY | PROVIDERS: PCP Internal Medicine; Visit Provider Internal Medicine Gastroenterology | DX: Z12.11 Encounter for screening for malignant neoplasm of colon (principal); K57.90 Diverticulosis of intestine, part unspecified, without perforation or abscess without bleeding; K64.0 First degree hemorrhoids | CPT/HCPCS: 45378 ==

== ENCOUNTER 2023-10-18 10:44 | Outpatient (AMB) | payer OTHER, SELFPAY ==
--- NOTE | 2023-10-18 10:51 | A.OFFVIS_ITS ---
Intake Vital Signs 10/18/23 10:54 Height 5 ft 7 in Weight 228 lb BMI 35.7 BP 123/77 Blood Pressure Location Lt brachial Position Sitting Respiration 88 H Intake Visit Reasons: S/P [place]; Dr. Bates Intake Note: Patient follow up for Colonoscopy results. Patient denies any GI issues. Sales Ambassador Required: No Accompanied by: Self / Same As Patient Allergies No Known Allergies [No Known Allergies*] Allergy (Verified 10/18/23 10:50) HPI HPI Comments History of Present Illness Details A 63 y/o male f/u after recent colonoscopy He tolerated procedure well He has no GI concerns Appetite very good, however does not consume much fiber he does eat out a lot Has normal bowel pattern No abdominal pain, nausea, vomiting, hematemesis, hematochezia fever chills PFSH Medical History (Updated 10/18/23 @ 11:09 by Marisa Cleveland PA-C) HTN (hypertension) Tobacco abuse Obesity (BMI 30-39.9) Diabetes 1.5, managed as type 2 History of prediabetes Surgical History H/O colonoscopy History of appendectomy Social History Housing: House Alcohol intake: current Alcohol intake frequency: holidays/special occasions only Patient Tobacco Use Status: Current everyday Tobacco user Cigarette Packs Per Day: 1 e-Cigarette/Vaping Use: Never Used service: No Current occupational status: employed 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 Cognitive needs: No Hearing needs: No Vision needs: No Review of Systems Const Details: All systems reviewed and are negative Physical Exam Vital Signs: Last Vital Signs Resp 88 H 10/18/23 10:54 BP 123/77 10/18/23 10:54 BMI result Body Mass Index 35.7 Const General: cooperative, healthy appearing, comfortable, no acute distress and well groomed Orientation/consciousness: patient oriented x3 Limitations: no limitations Resp Effort & Inspection: normal respiratory effort and able to speak in complete sentences Skin General skin exam: no rashes or lesions noted Neuro General: patient oriented x3 Extrem General: Yes full ROM Psych Appearance: grossly normal and well kempt Mental Status: mental status grossly normal Speech and movement: Normal speech and movement present and Clear speech present Affect: normal affect Attitude: cooperative Thought process: Normal thought process present Thought content: Normal thought content present Insight: Good insight present (Psych) Judgement: Good judgement present (Psych) Results Reviewed Results Reviewed: Impression and Post Procedure Diagnosis: diverticulosis internal hemorrhoids Plan: High fiber diet leaflet Avoid straining at stool, epsom salts and sitz bath, anusol supps or cream Repeat Colonoscopy in 5 years due to fair prep on left or earlier if clinically indicated Assessment & Plan Assessment & Plan (1) Diverticulosis of colon without diverticulitis: Code(s): K57.30 - Diverticulosis of large intestine without perforation or abscess without bleeding Plan: ER protocol Maintain high-fiber diet (2) Hemorrhoids: Code(s): K64.9 - Unspecified hemorrhoids Plan: Avoid straining Plan 5 years repeat sooner if need -due to inadequate prep HFD -fiber supplements, gummies would be beneficial literature give Food to avoid-nuts, seeds ETC Diverticulosis/diverticulitis ER protocol review Opportunity for questions answered to his satisfaction Patient Instructions: 5 years repeat sooner if need HFD - Food to avoid- Coding Level of Care Code Est Pt Level 3 (15830) Diagnoses Diverticulosis of colon without diverticulitis K57.30 Hemorrhoids K64.9 Time Spent (min) 30
[2023-10-18 10:54] VITALS: BP 123/77; RESP 88; BMI 35.7
== END 2023-10-18 12:26 | disposition home or self-care (01) ==
PROVIDERS: PCP Internal Medicine; Visit Provider Physician Assistant
DX: K57.30 Diverticulosis of large intestine without perforation or abscess without bleeding (principal); K64.9 Unspecified hemorrhoids
CPT/HCPCS: 99213

== ENCOUNTER → 2023-10-18 10:44 | Outpatient (BNVA) | payer OTHER, SELFPAY | PROVIDERS: PCP Internal Medicine; Visit Provider Physician Assistant ==

== ENCOUNTER 2023-12-13 10:04 | Outpatient (AMB) | payer OTHER, SELFPAY ==
[2023-12-13 10:25] VITALS: BP 136/84; PULSE 82; O2SAT 97; BMI 35.6
--- NOTE | 2023-12-13 10:25 | A.OFFPC_ITS ---
Vital Signs 12/13/23 10:25 Height 5 ft 7 in Weight 227 lb 6 oz BMI 35.6 BP 136/84 Blood Pressure Location Rt brachial Position Sitting Pulse 82 Pulse Source Pulse Oximeter Pulse Oximetry (%) 97 Oxygen Delivery Method Room Air Intake Visit Reasons: Annual PE Allergies No Known Allergies [No Known Allergies*] Allergy (Verified 12/13/23 10:27) Medication List - Last Reconciled 12/13/23 by Yemi Vinson MD lisinopril 5 mg PO DAILY 90 days metformin 1,000 mg PO ONCE 90 days Tobacco use date assessed: 12/13/23 Dental Screening Dental Screen Date: 12/13/23 Did you have a dental visit in the last 12 months?: Yes Did you have a dental problem in the last 6 months where you did not have access to dental care?: No Was dental information given to patient?: Patient has dentist HPI Annual PE HPI Details Physical exam appointment Colonoscopy was September of this year Dr. Bates next 1 will be in 5 years Hemoglobin A1c 6.9 Patient is on metformin 500 mg 1 and half tablet daily Add lisinopril 5 mg for blood pressure control BMI is still elevated patient is trying to lose weight His eye exam appointment is coming up Patient does not want to see any mortgage loan processing clerk Follow-up 6 months [facility] Medical History HTN (hypertension) Tobacco abuse Obesity (BMI 30-39.9) Diabetes 1.5, managed as type 2 History of prediabetes Surgical History H/O colonoscopy History of appendectomy Social History Housing: House Alcohol intake: current Alcohol intake frequency: holidays/special occasions only Patient Tobacco Use Status: Current everyday Tobacco user Cigarette Packs Per Day: 1 e-Cigarette/Vaping Use: Never Used service: No Current occupational status: employed 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 How often do you have a drink containing alcohol?: Monthly or less 2. How many drinks containing alcohol do you have on a typical day when you are drinking?: 1 or 2 3. How often do you have six or more drinks on one occasion?: Never Total Score: 1 Score Reviewed/Action Taken: Yes SUSI-7 AMB Questionnaire SUSI-7 Date SUSI - 7 assessed: 07/05/23 Source: Developed by Drs. Serafin Sanchez, Luna Guy, Teto Boyle and colleagues, with an educational swathi from [employer]. Review of Systems Const Denies chills, Denies fever(s) and Denies headache(s) Eyes Denies blurry vision ENT Denies headache(s), Denies nasal discharge, Denies nasal obstruction, Denies odynophagia and Denies sinus pain Card Denies chest pain at rest and Denies chest pain with activity Resp Denies cough and Denies hemoptysis GI Denies diarrhea, Denies odynophagia, Denies vomiting and Denies hematemesis Reports as per HPI Musc Denies abnormal gait Skin/Breast Reports as per HPI Neuro Denies Neuro-related abnormal movements, Denies Abnormal speech present, Denies abnormal gait, Denies headache(s) and Denies Sensory deficit (Neuro) Psych Denies mood swings and Denies paranoia Endo Reports as per HPI Ag/Lymph Reports as per HPI Aller/Immun Reports as per HPI Physical exam (Primary Care) Vital Signs: Last Vital Signs Pulse 82 12/13/23 10:25 BP 136/84 12/13/23 10:25 Pulse Ox 97 12/13/23 10:25 Oxygen Delivery Method Room Air 12/13/23 10:25 BMI result Body Mass Index 35.6 Tobacco/Smoking Status: Tobacco use Status Tobacco use date assessed 12/13/23 12/13/23 10:28 Patient Tobacco Use Status Current everyday Tobacco 12/13/23 10:28 e-Cigarette/Vaping Use Never Used 12/13/23 10:28 Thrive Assessment: Date of Thrive Assessment Date Thrive assessed 09/11/21 12/13/23 10:28 Const General: cooperative, comfortable and no acute distress Orientation/consciousness: patient oriented x3 HENMT Head: Yes normocephalic and Yes atraumatic Eyes General: appearance normal, both eyes and all related structures Pupils: Equal, round and reactive pupils present EOM: EOMs intact bilaterally Neck Neck: Yes supple and No lymphadenopathy Thyroid: Thyroid normal Lymphatic: no lymphadenopathy noted Resp Effort & Inspection: normal respiratory effort and able to speak in complete sentences Auscultation: clear to auscultation bilaterally Cardio Heart sounds: S1 normal heart sound present and S2 normal heart sound present GI Palpation (GI): Soft to palpation and nontender Auscultation: normal bowel sounds General: Yes no CVA tenderness Back/Spine/Pelvis Back: no CVA tenderness Skin General skin exam: elasticity normal and turgor normal Neuro General: patient oriented x3 and gait normal Cranial nerves: Yes Equal, round and reactive pupils present Speech: No Abnormal speech present Sensory Exam: No Sensory deficit (Neuro) Coordination: Romberg test negative Extrem General: Yes normal exam except as noted and No edema Results AMB Hemoglobin A1c AMB Hemoglobin A1c 6.9 % Last Edit by Zenia Du MA on 12/13/23 10:40 Results Reviewed Results Reviewed: Laboratory Last Values Hgb A1c (Clinic) 6.9 % (4.0-6.0) H 12/13/23 10:39 Assessment and Plan Assessment & Plan (1) Encounter for general adult medical examination with abnormal findings: Code(s): Z00.01 - Encounter for general adult medical examination with abnormal findings (2) LFT elevation: Code(s): R79.89 - Other specified abnormal findings of blood chemistry (3) Diabetes mellitus type 2 in obese: Code(s): E11.69 - Type 2 diabetes mellitus with other specified complication; E66.9 - Obesity, unspecified (4) Abnormal tandem walk: Code(s): R26.9 - Unspecified abnormalities of gait and mobility Plan Physical exam appointment Colonoscopy was September of this year Dr. Bates next 1 will be in 5 years Hemoglobin A1c 6.9 Patient is on metformin 500 mg 1 and half tablet daily Add lisinopril 5 mg for blood pressure control BMI is still elevated patient is trying to lose weight His eye exam appointment is coming up Patient does not want to see any mortgage loan processing clerk Follow-up 6 months Tandem walk failed Coding Level of Care Code Est Pt Level 3 (86204) Est Pt Prev Care 40-64y(54501) Diagnoses Encounter for general adult medical examination with abnormal findings Z00.01 LFT elevation R79.89 Diabetes mellitus type 2 in obese E11.69; E66.9 Abnormal tandem walk R26.9
== END 2023-12-13 10:53 | disposition home or self-care (01) ==
PROVIDERS: Visit Provider Internal Medicine
DX: Z00.01 Encounter for general adult medical examination with abnormal findings (principal); R79.89 Other specified abnormal findings of blood chemistry; E11.69 Type 2 diabetes mellitus with other specified complication; E66.9 Obesity, unspecified; Z68.35 Body mass index [BMI] 35.0-35.9, adult; R26.9 Unspecified abnormalities of gait and mobility
CPT/HCPCS: 83036; 99213; 99396

== ENCOUNTER 2024-02-06 11:03 | Outpatient (AMB) | payer OTHER, SELFPAY ==
--- NOTE | 2024-02-06 11:20 | MHC.OFFWIV ---
Intake Vital Signs 02/06/24 11:24 Height 5 ft 7 in Weight 228 lb BMI 35.7 BP 128/84 Blood Pressure Location Rt brachial Position Sitting Pulse 86 Pulse Source Pulse Oximeter Temp 98.3 F Temp Source Oral Pulse Oximetry (%) 98 Oxygen Delivery Method Room Air Intake Visit Reasons: EP RT knee pain Intake Note: pt here c/o RT knee pain. Ongoing. Worse over weekend Patient Tobacco Use Status: Current everyday Tobacco user Allergies No Known Allergies [No Known Allergies*] Allergy (Verified 02/06/24 11:24) Do you need a note to return to daycare/school/sports/work: No HPI EP RT knee pain HPI Details This note is constructed using voice recognition software. While every effort has been made to ensure accuracy, anger control counselor errors may have been included. The patient is a 63 year old male who presents to the clinic today with 3-4 day history of right lateral knee pain, worsening since onset. 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 He has not been resting it since the initial injury, and notes that it occurred while he was mowing his lawn with a self-propelled push mower, where he felt a straining sensation to the lateral portion of his right knee. He denies numbness or tingling, inability to walk, but does report pain with ambulation. He denies redness, warmth, or inflammation to the area. He is had no previous surgeries or injuries to the area. He is not tried anything for treatment at home including anything orally. 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 Cognitive needs: No Hearing needs: No Vision needs: No Review of Systems Const All systems reviewed & are unremarkable except as noted in HPI and below Physical Exam Vital Signs: Last Vital Signs Temp 98.3 F 02/06/24 11:24 Pulse 86 02/06/24 11:24 BP 128/84 02/06/24 11:24 Pulse Ox 98 02/06/24 11:24 Oxygen Delivery Method Room Air 02/06/24 11:24 BMI result Body Mass Index 35.7 Const General: cooperative, healthy appearing, comfortable, no acute distress and alert Orientation/consciousness: patient oriented x3 Limitations: no limitations Skin General skin exam: no rashes or lesions noted, elasticity normal and turgor normal Neuro General: patient oriented x3 Extrem General: Yes normal to inspection, Yes full ROM, Yes capillary refill normal and Yes normal exam except as noted Right lower extremity: full ROM (Lateral joint line tenderness of knee on medial deviation, no laxity noted) and no joint enlargement; no edema Psych Appearance: grossly normal Mental Status: mental status grossly normal Speech and movement: Normal speech and movement present Affect: normal affect Assessment & Plan Assessment & Plan (1) Strain of right knee: Code(s): S86.911A - Strain of unspecified muscle(s) and tendon(s) at lower leg level, right leg, initial encounter Qualifiers: Encounter type: initial encounter Qualified Code(s): S86.911A - Strain of unspecified muscle(s) and tendon(s) at lower leg level, right leg, initial encounter Plan: Likely consistent with moderate level strain. Advised Rest, ice, compression, elevation. James Wrap applied. Offered letter for work to promote a sitting time and leg elevation, however patient declined at this time. I advised him that if he is not having any improvement, after 1-2 weeks he should be re-evaluated as he may need referral to Orthopedics. He agreed to seek repeat evaluation after that time. I reviewed [id number] use of NSAIDs for both anti-inflammatory effect as well as for pain management. I offered crutches, however he declined at this time. Given the nature of injury, we elected not to perform x-rays as that was not appropriate to the type of injury. Plan See above for full details and plan. Patient Instructions: Rest, ice, provide compression by use of James wrap, and elevate the right knee. Take ibuprofen, Advil, Aleve, or similar medication to help with inflammation and pain. If pain is unresolved, or worsening after 1-2 weeks, seek re-evaluation as you may need referral to orthopedist. Coding Level of Care Code Est Pt Level 3 (32493) Diagnoses Strain of right knee, initial encounter S86.911A Encounter type: initial encounter
[2024-02-06 11:24] VITALS: BP 128/84; PULSE 86; TEMP 36.8; O2SAT 98; BMI 35.7
== END 2024-02-06 12:21 | disposition home or self-care (01) ==
PROVIDERS: PCP Internal Medicine; Visit Provider Registered Nurse
DX: S86.911A Strain of unspecified muscle(s) and tendon(s) at lower leg level, right leg, initial encounter (principal)
CPT/HCPCS: 99213

== ENCOUNTER 2024-04-13 08:14 | Outpatient (AMB) | payer OTHER, SELFPAY ==
[2024-04-13 08:15] VITALS: BP 118/70; PULSE 74; O2SAT 97; BMI 35.4
--- NOTE | 2024-04-13 08:15 | A.OFFPC_ITS ---
Vital Signs 3 04/13/24 08:15 Height 5 ft 7 in Weight 226 lb BMI 35.4 BP 118/70 Blood Pressure Location Rt brachial Position Sitting Pulse 74 Pulse Source Pulse Oximeter Pulse Oximetry (%) 97 Intake Visit Reasons: Knee Pain Legal Administrator Required: No Accompanied by: Self / Same As Patient Allergies No Known Allergies [No Known Allergies*] Allergy (Verified 04/13/24 08:16) Medication List - Last Reconciled 04/13/24 by Yemi Vinson MD lisinopril 5 mg PO DAILY 90 days metformin 1,000 mg PO DAILY 90 days Tobacco use date assessed: 12/13/23 Dental Screening Dental Screen Date: 12/13/23 HPI Knee Pain 2 HPI0 Details Patient is 63-year-old gentleman came in today to be evaluated for right knee pain Which has been happening since January He was seen in walk-in clinic in January was given some medication, however patient says the pain never got better He is taking ibuprofen at home which does help, and wears splint at work On examination he has swelling right knee medial aspect, without any heat or redness, range of motion is limited in full flexion I am ordering x-ray for the patient, he may continue ibuprofen and splint as needed Orthopedic referral placed [facility] Medical History HTN (hypertension) Tobacco abuse Obesity (BMI 30-39.9) Diabetes 1.5, managed as type 2 History of prediabetes Surgical History H/O colonoscopy History of appendectomy Social History Housing: House Alcohol intake: current Alcohol intake frequency: holidays/special occasions only Patient Tobacco Use Status: Current everyday Tobacco user Cigarette Packs Per Day: 1 e-Cigarette/Vaping Use: Never Used service: No Current occupational status: employed 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 1. Little interest or pleasure in doing things: not at all 2. Feeling down, depressed, or hopeless: not at all 3. Trouble falling or staying asleep, or sleeping too much: not at all 4. Feeling tired or having little energy: not at all 5. Poor appetite or overeating: not at all 6. Feeling bad about yourself - or that you are a failure or have let yourself or your family down: not at all 7. Trouble concentrating on things, such as reading the newspaper or watching television: not at all 8. Moving or speaking so slowly that other people could have noticed. Or the opposite - being so fidgety or restless that you have been moving around a lot more than usual: not at all 9. Thoughts that you would be better off or of hurting yourself in some way: not at all Total score: 0 Depression Screening Interpretation: Negative Depression Screening Done: Yes 67077 - PHQ-9 Billing: Yes Source: Developed by Drs. Serafin Sanchez, Luna Guy, Teto Boyle and colleagues, with an educational swathi from [employer]. Thrive Questionnaire Date Thrive assessed: 04/13/24 I am a: Patient What is your living situation today?: I have a steady place to live Within the past 12 months, did the food you bought not last and you didn't have the money to get more?: Never true Within the past 12 months, did you worry whether your food would run out before you got money to buy more?: Never true Do you have trouble paying for medicines?: No Do you have trouble getting transportation to medical appointments?: No Do you have trouble paying your heating and electricity bill?: No Do you have trouble taking care of your child, family member or friend?: No Do you have trouble with day-to-day activities such as bathing, preparing meals, shopping, managing finances, etc.?: No Are you interested in more education?: No Please select the resources that you would like help with: None Currently or been in a relationship where the following occur: No concerns reported THRIVE Score: 0 AUDIT C Alcohol Use Questionnaire (AUDIT-C) 1. How often do you have a drink containing alcohol?: Monthly or less 2. How many drinks containing alcohol do you have on a typical day when you are drinking?: 1 or 2 3. How often do you have six or more drinks on one occasion?: Never Total Score: 1 Score Reviewed/Action Taken: Yes SUSI-7 AMB Questionnaire SUSI-7 Date SUSI - 7 assessed: 04/13/24 Feeling nervous, anxious, or on edge: 0 = Not at all Not being able to stop or control worryin = Not at all Worrying too much about different things: 0 = Not at all Trouble relaxin = Nearly every day Being so restless that it is hard to sit still: 0 = Not at all Becoming easily annoyed or irritable: 0 = Not at all Feeling afraid as if something awful might happen: 0 = Not at all Total SUSI-7 score (0-4 normal; 5-9 mild; 10-14 moderate; 15-21 severe): 3 Source: Developed by Drs. Serafin Sanchez, Luna Guy, Teto Boyle and colleagues, with an educational swathi from [employer]. SUSI-7 Assessment Billing SUSI-7 Assessment Tool: SUSI-7 Assessment 70813 Review of Systems Const All systems reviewed & are unremarkable except as noted in HPI and below Physical exam (Primary Care) Vital Signs: Last Vital Signs Pulse 74 04/13/24 08:15 BP 118/70 04/13/24 08:15 Pulse Ox 97 04/13/24 08:15 BMI result Body Mass Index 35.4 Tobacco/Smoking Status: Tobacco use Status Tobacco use date assessed 12/13/23 04/13/24 08:16 Patient Tobacco Use Status Current everyday Tobacco 04/13/24 08:16 e-Cigarette/Vaping Use Never Used 04/13/24 08:16 PHQ-9: PHQ-9 Score PHQ-9: Total score 0 04/13/24 08:32 Depression Screening Interpretation: Negative Thrive Assessment: Date of Thrive Assessment Date Thrive assessed 04/13/24 04/13/24 08:16 Currently or been in a relationship where the following occur: No concerns reported Const General: no acute distress Orientation/consciousness: patient oriented x3 Eyes General: appearance normal, both eyes and all related structures Resp Effort & Inspection: normal respiratory effort and able to speak in complete sentences Neuro General: patient oriented x3 Extrem Elbow/forearm/wrist images: 2 1. Swelling medially above patella, without any skin redness or heat, range of motion intact except in full flexion, no calf tenderness, vascular intact Psych Mental Status: mental status grossly normal Assessment and Plan Assessment & Plan (1) Knee swelling: Code(s): M25.469 - Effusion, unspecified knee (2) Knee pain, right: Code(s): M25.561 - Pain in right knee Qualifiers: Chronicity: acute Qualified Code(s): M25.561 - Pain in right knee Plan Patient is 63-year-old gentleman came in today to be evaluated for right knee pain Which has been happening since January He was seen in walk-in clinic in January was given some medication, however patient says the pain never got better He is taking ibuprofen at home which does help, and wears splint at work On examination he has swelling right knee medial aspect, without any heat or redness, range of motion is limited in full flexion I am ordering x-ray for the patient, he may continue ibuprofen and splint as needed Orthopedic referral placed Orders: Orders 2 XR knee RT 2V Today M25.469 - Effusion, unspecified knee Referrals 2 Orthopedics Referral M25.469 - Effusion, unspecified knee, M25.561 - Pain in right knee Coding Level of Care Code Est Pt Level 3 (12968) Diagnoses Knee swelling M25.469 Acute pain of right knee M25.561 Chronicity: acute Additional Codes SUSI-7 Assessment Billing - SUSI-7 Assessment Tool: SUSI-7 Assessment 99795 ([id number])
== END 2024-04-13 13:20 | disposition home or self-care (01) ==
PROVIDERS: PCP Internal Medicine; Visit Provider Internal Medicine
DX: M25.469 Effusion, unspecified knee (principal); M25.561 Pain in right knee

== ENCOUNTER → 2024-04-13 08:14 | Outpatient (BNVA) | payer OTHER, SELFPAY | PROVIDERS: PCP Internal Medicine; Visit Provider Internal Medicine | DX: M25.561 Pain in right knee (principal) ==

== ENCOUNTER 2024-04-13 08:32 | Outpatient (REF) | payer OTHER, SELFPAY ==
--- NOTE | ~2024-04-13 | XR_ITS ---
EXAMINATION: XR KNEE, RIGHT CLINICAL INFORMATION: M25.469 - Effusion, unspecified knee COMPARISON: None available. TECHNIQUE: Four views of the right knee. FINDINGS: No fracture, dislocation, or suspicious focal bony abnormality. No malalignment. Minimal degenerative arthritis in the medial and patellofemoral joint with early marginal osteophyte spurring. Lateral compartment joint space appears preserved. There is a prominent suprapatellar joint effusion present on the lateral projection. Soft tissues appear normal. XR/XR knee RT 4V IMPRESSION: 1. No acute bony abnormalities. 2. Prominent suprapatellar joint effusion. 3. Minimal degenerative arthritis medial and patellofemoral joints. Electronically signed by: José Mix MD 06/21/2024 03:48 PM WHIT
== END 2024-04-13 08:33 | disposition home or self-care (01) ==
LOC: HO.HMGCX 08:32
PROVIDERS: PCP Internal Medicine; Visit Provider Internal Medicine
DX: M25.461 Effusion, right knee (principal)
CPT/HCPCS: 73564; 96127

== ENCOUNTER → 2024-04-13 08:37 | Outpatient (BNV) | payer OTHER, SELFPAY | PROVIDERS: PCP Internal Medicine; Visit Provider Radiology Diagnostic Radiology | DX: M25.469 Effusion, unspecified knee (principal) | CPT/HCPCS: 73564 ==

== ENCOUNTER 2024-05-10 09:32 | Outpatient (AMB) | payer OTHER, SELFPAY ==
--- NOTE | 2024-05-10 09:33 | MHC.OFFVIS ---
Vital Signs 05/10/24 09:34 Height 5 ft 7 in Weight 226 lb BMI 35.4 Intake Visit Reasons: New Problem - Right Knee Pain Intake Note: Teto is a 63 year old male who presents today for a new problem visit with complaints of Right Knee Pain. Patient reports that he has had ongoing pain since January. He reports that he was dong some painting the house and was on his knees, after this his knee was quite sore and stiff. The day after he was mowing the lawn and believes that he felt a pop in the knee. He has had continued pain. His pain is felt on the medial aspect of the knee, increases when he is driving or sleeping with the knees together. He has been using ice application, and takes Ibuprofen which does help. Allergies No Known Allergies [No Known Allergies*] Allergy (Verified 04/13/24 08:16) HPI HPI New Problem - Right Knee Pain: Details: Teto is a 63 year old male who presents today for a new problem visit with complaints of Right Knee Pain. Patient reports that he has had ongoing pain since January. He reports that he was dong some painting the house and was on his knees, after this his knee was quite sore and stiff. The day after he was mowing the lawn and believes that he felt a pop in the knee. He has had continued pain. His pain is felt on the medial aspect of the knee, increases when he is driving or sleeping with the knees together. He has been using ice application, and takes Ibuprofen which does help. 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 Tenderness to palpation along the medial compartment. Stable to varus and valgus stress. Positive medial Willie's and tenderness to palpation medial joint line Results Reviewed Results Reviewed: I personally reviewed relevant radiographs. Mild medial compartment joint space narrowing. Otherwise unremarkable radiographs. Assessment & Plan Assessment & Plan (1) Knee effusion, right: Code(s): M25.461 - Effusion, right knee Category: Medical Plan: This is a 63-year-old gentleman with 3 months of right knee effusion and medial joint line pain. He has tried activity modification and NSAIDs. He is a diabetic and does not want injections. An MRI was ordered today. He will follow up once that has been completed. Coding Level of Care Code Est Pt Level 3 (35864) Diagnoses Knee effusion, right M25.461
[2024-05-10 09:34] VITALS: BMI 35.4
== END 2024-05-10 09:54 | disposition home or self-care (01) ==
PROVIDERS: PCP Internal Medicine; Visit Provider Orthopaedic Surgery
DX: M25.461 Effusion, right knee (principal)
CPT/HCPCS: 99213

== ENCOUNTER → 2024-05-10 09:32 | Outpatient (BNVA) | payer OTHER, SELFPAY | PROVIDERS: PCP Internal Medicine; Visit Provider Orthopaedic Surgery ==

== ENCOUNTER 2024-06-09 10:57 | Outpatient (REF) | payer OTHER, SELFPAY ==
[2024-06-09 13:53] LABS: Cholesterol 178 mg/dL (<200); HDL Cholesterol 42 mg/dL (>40); LDL Cholesterol Calculated 104 mg/dL (<100); Triglycerides 164 mg/dL (<150)
== END 2024-06-09 10:58 | disposition home or self-care (01) ==
LOC: HO.HMGCLDS 10:57
PROVIDERS: PCP Internal Medicine; Visit Provider Internal Medicine
DX: E11.69 Type 2 diabetes mellitus with other specified complication (principal); E66.9 Obesity, unspecified; F17.200 Nicotine dependence, unspecified, uncomplicated; R79.89 Other specified abnormal findings of blood chemistry; M77.12 Lateral epicondylitis, left elbow; G56.22 Lesion of ulnar nerve, left upper limb
CPT/HCPCS: 36415; 80061

== ENCOUNTER 2024-06-22 08:58 | Outpatient (AMB) | payer OTHER, SELFPAY ==
[2024-06-22 09:00] VITALS: BP 118/82; PULSE 96; O2SAT 97; BMI 35.4
--- NOTE | 2024-06-22 09:00 | A.OFFPC_ITS ---
Vital Signs 06/22/24 09:00 Height 5 ft 7 in Weight 226 lb BMI 35.4 BP 118/82 Blood Pressure Location Rt brachial Position Sitting Pulse 96 Pulse Source Pulse Oximeter Pulse Oximetry (%) 97 Oxygen Delivery Method Room Air Intake Visit Reasons: 6 tue f/u Allergies No Known Allergies [No Known Allergies*] Allergy (Verified 06/22/24 09:01) Medication List - Last Reconciled 06/22/24 by Yemi Vinson MD lisinopril 5 mg PO DAILY 90 days metformin 1,000 mg PO DAILY 90 days Tobacco use date assessed: 06/22/24 Dental Screening Dental Screen Date: 06/22/24 Did you have a dental visit in the last 12 months?: Yes Did you have a dental problem in the last 6 months where you did not have access to dental care?: No Was dental information given to patient?: Patient has dentist HPI 6 tue f/u HPI Details Chief Complaint The patient presents with a resolved knee pain episode and concerns regarding diabetes management. Assessment and Plan 64-year-old male with a history of osteo arthritis of the knee and Type 2 Heather betes Mellitus presenting with resolved knee pain after a recent episode of arthritis-related discomfort. The knee pain episode spontaneously resolved just before a scheduled medical visit as follow-up with orthopedic after the initial visit when MRI of the knee was ordered. Patient never had MRI as knee pain resolved on its own. Current concern is the slightly elevated HbA1c level noted during recent laboratory evaluations, indicating a need for improved glycemic control. The patient has also transitioned from smoking to vaping, which is noted in smoking cessation management discussions. 1. Type 2 Diabetes Mellitus Current HbA1c is elevated at 7.2%, up from 6.9%. Discussed importance of dietary management and adherence to prescribed Metformin. Patient reminded to maintain dietary habits conducive to lowering blood glucose levels to avoid the addition of further pharmacotherapy. 2. Osteoarthritis Of The Knee The patient's knee osteoarthritis episode recently improved with no interventions required. Patient's arthritic flare-ups have historically resolved on their own. Implement ongoing monitoring, with recommendation to avoid situations that may cause further strain or injury. No MRI required as symptoms resolved. 3. Nicotine Dependence Discussed progress in smoking cessation with transition to vaping. Emphasized continuous effort to reduce nicotine intake. Encouraged further reduction in vaping frequency with potential progression to cessation. Problem List - Osteoarthritis of the knee - Type 2 Diabetes Mellitus - Nicotine dependence Patient Instructions - Continue monitoring knee condition and avoid actions that apply undue stress. - Strictly adhere to Metformin regimen a nd dietary recommendations to manage blood glucose levels. - Reduce calorie-dense and high-sugar fo od intake, in light of recent increase in HbA1c. - Work progressively towards complete sm oking cessation, reducing dependence on vaping. - Schedule and complete necessary labora tory testing prior to the next appointment. - Attend scheduled follow-up appointment in November for a comprehensive evaluation including physical examination and review of lab results. 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 Cognitive needs: No Hearing needs: No Vision needs: No Questionnaire Thrive Questionnaire Date Thrive assessed: 06/22/24 I am a: Patient What is your living situation today?: I have a steady place to live Within the past 12 months, did the food you bought not last and you didn't have the money to get more?: Never true Within the past 12 months, did you worry whether your food would run out before you got money to buy more?: Never true Do you have trouble paying for medicines?: No Do you have trouble getting transportation to medical appointments?: No Do you have trouble paying your heating and electricity bill?: No Do you have trouble taking care of your child, family member or friend?: No Do you have trouble with day-to-day activities such as bathing, preparing meals, shopping, managing finances, etc.?: No Are you currently unemployed and looking for a job?: No Are you interested in more education?: No Please select the resources that you would like help with: None Currently or been in a relationship where the following occur: No concerns reported THRIVE Score: 0 AUDIT C Alcohol Use Questionnaire (AUDIT-C) 1. How often do you have a drink containing alcohol?: Monthly or less 2. How many drinks containing alcohol do you have on a typical day when you are drinking?: 1 or 2 3. How often do you have six or more drinks on one occasion?: Never Total Score: 1 Score Reviewed/Action Taken: Yes SUSI-7 AMB Questionnaire SUSI-7 Date SUSI - 7 assessed: 04/13/24 Source: Developed by Drs. Serafin Sanchez, Luna Guy, Teto Boyle and colleagues, with an educational swathi from [employer]. Review of Systems Const Denies chills and Denies fever(s) ENT Denies epistaxis and Denies nasal discharge Card Denies chest pain Resp Denies chest congestion, Denies cough and Denies hemoptysis GI Denies diarrhea and Denies nausea Skin/Breast Denies rash Neuro Reports no additional complaints Psych Reports no additional complaints Endo Reports no additional complaints Physical exam (Primary Care) Vital Signs: Last Vital Signs Pulse 96 06/22/24 09:00 BP 118/82 06/22/24 09:00 Pulse Ox 97 06/22/24 09:00 Oxygen Delivery Method Room Air 06/22/24 09:00 BMI result Body Mass Index 35.4 Tobacco/Smoking Status: Tobacco use Status Tobacco use date assessed 06/22/24 06/22/24 09:04 Patient Tobacco Use Status Current everyday Tobacco 06/22/24 09:04 e-Cigarette/Vaping Use Never Used 06/22/24 09:04 Thrive Assessment: Date of Thrive Assessment Date Thrive assessed 06/22/24 06/22/24 09:04 Currently or been in a relationship where the following occur: No concerns reported Const General: cooperative, comfortable and no acute distress Orientation/consciousness: patient oriented x3 HENMT Head: Yes normocephalic Eyes General: appearance normal, both eyes and all related structures Neck Neck: Yes supple Resp Effort & Inspection: normal respiratory effort, no cough and no stridor Cardio Rhythm: regular rhythm Heart sounds: S1 normal heart sound present and S2 normal heart sound present Skin General skin exam: turgor normal Neuro General: patient oriented x3, tone normal and moves all extremities Extrem Right lower extremity: no edema Left lower extremity: no edema Coding Level of Care Code Est Pt Level 4 (16452) Diagnoses Diabetes 1.5, managed as type 2 E13.9 Obesity (BMI 30-39.9) E66.9 Hypertension, essential I10 Tobacco dependence F17.200 Primary osteoarthritis of both knees M17.0 Laterality: bilateral Assessment & Plan Assessment & Plan (1) Diabetes 1.5, managed as type 2: Code(s): E13.9 - Other specified diabetes mellitus without complications Category: Medical (2) Obesity (BMI 30-39.9): Code(s): E66.9 - Obesity, unspecified Category: Medical (3) Hypertension, essential: Code(s): I10 - Essential (primary) hypertension Category: Medical (4) Tobacco dependence: Code(s): F17.200 - Nicotine dependence, unspecified, uncomplicated Category: Medical (5) Primary osteoarthritis of knee: Code(s): M17.10 - Unilateral primary osteoarthritis, unspecified knee Category: Medical Qualifiers: Laterality: bilateral Qualified Code(s): M17.0 - Bilateral primary osteoarthritis of knee Plan Chief Complaint The patient presents with a resolved knee pain episode and concerns regarding diabetes management. Assessment and Plan 64-year-old male with a history of osteoarthritis of the knee and Type 2 Diabetes Mellitus presenting with resolved knee pain after a recent episode of arthritis-related discomfort. The knee pain episode spontaneously resolved just before a scheduled medical visit as follow-up with orthopedic after the initial visit when MRI of the knee was ordered. Patient never had MRI as knee pain resolved on its own. Current concern is the slightly elevated HbA1c level noted during recent laboratory evaluations, indicating a need for improved glycemic control. The patient has also transitioned from smoking to vaping, which is noted in smoking cessation management discussions. 1. Type 2 Diabetes Mellitus Current HbA1c is elevated at 7.2%, up from 6.9%. Discussed importance of dietary management and adherence to prescribed Metformin. Patient reminded to maintain dietary habits conducive to lowering blood glucose levels to avoid the addition of further pharmacotherapy. 2. Osteoarthritis Of The Knee The patient's knee osteoarthritis episode recently improved with no interventions required. Patient's arthritic flare-ups have historically resolved on their own. Implement ongoing monitoring, with recommendation to avoid situations that may cause further strain or injury. No MRI required as symptoms resolved. 3. Nicotine Dependence Discussed progress in smoking cessation with transition to vaping. Emphasized continuous effort to reduce nicotine intake. Encouraged further reduction in vaping frequency with potential progression to cessation. Problem List - Osteoarthritis of the knee - Type 2 Diabetes Mellitus - Nicotine dependence - obesity, having difficulty losing weight Patient Instructions - Continue monitoring knee condition and avoid actions that apply undue stress. - Strictly adhere to Metformin regimen and dietary recommendations to manage blood glucose levels. - Reduce calorie-dense and high-sugar food intake, in light of recent increase in HbA1c. - Work progressively towards complete smoking cessation, reducing dependence on vaping. - Schedule and complete necessary laboratory testing prior to the next appointment. - Attend scheduled follow-up appointment in November for a comprehensive evaluation including physical examination and review of lab results. Orders: Orders Comprehensive Met. Panel 3 Months E13.9 - Other specified diabetes mellitus without complications, E66.9 - Obesity, unspecified LDL Cholesterol Direct 3 Months E13.9 - Other specified diabetes mellitus without complications, E66.9 - Obesity, unspecified Complete Blood Count Auto Diff 3 Months E13.9 - Other specified diabetes mellitus without complications, E66.9 - Obesity, unspecified Hemoglobin A1c 3 Months E13.9 - Other specified diabetes mellitus without complications, E66.9 - Obesity, unspecified Microalbumin, Random (w Creat) 3 Months E13.9 - Other specified diabetes mellitus without complications, E66.9 - Obesity, unspecified
== END 2024-06-22 09:28 | disposition home or self-care (01) ==
PROVIDERS: PCP Internal Medicine; Visit Provider Internal Medicine
DX: I10 Essential (primary) hypertension (principal); E13.9 Other specified diabetes mellitus without complications; E66.9 Obesity, unspecified; Z68.35 Body mass index [BMI] 35.0-35.9, adult; F17.200 Nicotine dependence, unspecified, uncomplicated; M17.0 Bilateral primary osteoarthritis of knee

== ENCOUNTER → 2024-06-22 08:58 | Outpatient (BNVA) | payer OTHER, SELFPAY | PROVIDERS: PCP Internal Medicine; Visit Provider Internal Medicine | DX: E13.9 Other specified diabetes mellitus without complications (principal); E66.9 Obesity, unspecified; Z68.35 Body mass index [BMI] 35.0-35.9, adult; I10 Essential (primary) hypertension; M17.0 Bilateral primary osteoarthritis of knee; F17.210 Nicotine dependence, cigarettes, uncomplicated | CPT/HCPCS: 83036 ==

== ENCOUNTER 2024-10-17 10:01 | Outpatient (REF) | payer SELFPAY ==
[2024-10-17 13:17] LABS: MANUAL DIFF FLAG NO
[2024-10-17 13:41] LABS: Basophils Absolute Auto 0.1 X10*3/uL (0.0-0.2); Basophils Percent Auto 0.7 % (0-2); Eosinophils Absolute Auto 0.4 X10*3/uL (0.0-0.4); Eosinophils Percent Auto 5.5 % (0-4); Hematocrit 42.8 % (42.0-52.0); Hemoglobin 14.7 g/dl (14.0-18.0); Imm Gran Abs Auto 0.04 X10*3/uL (0.00-0.03); Imm Gran Pct Auto 0.6 % (0.0-0.4); Lymphocytes Absolute Auto 2.2 X10*3/uL (1.2-4.9); Lymphocytes Percent Auto 31.4 % (20-40); Mean Corpuscular HGB Conc 34.3 g/dl (31.0-36.0); Mean Corpuscular Hemoglobin 29.6 pg (27.0-33.0); Mean Corpuscular Volume 86.3 fL (80.0-98.0); Mean Platelet Volume 9.9 fL (9.4-12.4); Monocytes Absolute Auto 0.6 X10*3/uL (0.1-1.2); Monocytes Percent Auto 8.6 % (2-11); Neutrophils Absolute Auto 3.7 x10*3/uL (2.0-8.3); Neutrophils Percent Auto 53.2 % (45-73); Platelet Count 243 X10*3/uL (160-400); Red Blood Count 4.96 X10*6/uL (4.60-5.80); Red Cell Distribution Width 13.4 % (11.0-16.0); White Blood Count 6.9 X10*3/uL (4.8-10.8)
[2024-10-17 13:42] LABS: Estimated Average Glucose 192 mg/dL; Hemoglobin A1C 255.0218 umol/L; Hemoglobin A1c % 8.3 % (<6.0); Total Hemoglobin (HGBA1C) 3814.0647 umol/L
[2024-10-17 14:16] LABS: Alanine Aminotransferase 45 U/L (0-40); Alkaline Phosphatase 54 U/L (39-117); Anion Gap 10 (12-20); Aspartate Amino Transferase 42 U/L (5-37); Bilirubin Total 0.4 mg/dL (0.0-1.0); Blood Urea Nitrogen 12 mg/dL (9-16); Calcium 9.3 mg/dL (8.4-10.2); Carbon Dioxide 21 mmol/L (22-29); Chloride 107 mmol/L (96-108); Estimated Glomerular Filt Rate > 60; Glucose Random 211 mg/dL (60-115); Potassium 4.2 mmol/L (3.3-5.1); Sodium 134 mmol/L (135-145); Total Protein 7.4 g/dL (6.5-8.0)
[2024-10-17 14:51] LABS: Creatinine Urine 113.84 mg/dL; Microalbum/Creatinine Ratio Ur 62.3 ug/mg cr (<30)
[2024-10-18 08:13] LABS: LDL Cholesterol Direct 114 mg/dL (<100)
== END 2024-10-17 10:02 | disposition home or self-care (01) ==
LOC: HO.HMGCLDS 10:01
PROVIDERS: PCP Internal Medicine; Visit Provider Internal Medicine
DX: E13.9 Other specified diabetes mellitus without complications (principal); E66.9 Obesity, unspecified
CPT/HCPCS: 36415; 80053; 82043; 82570; 83036; 83721; 85025

== ENCOUNTER 2025-01-15 11:41 | Outpatient (AMB) | payer OTHER, SELFPAY ==
[2025-01-15 11:49] VITALS: BP 146/88; PULSE 106; TEMP 36.1; O2SAT 97; BMI 36.7
--- NOTE | 2025-01-15 11:49 | A.OFFPC_ITS ---
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: No Allergies No Known Allergies (No Known Allergies*) Allergy (Verified 01/15/25 11:53) Medication List - Last Reconciled 01/15/25 by Yemi Vinson MD lisinopril 5 mg PO DAILY 90 days metformin 1,000 mg PO DAILY 90 days Tobacco use date assessed: 01/15/25 Dental Screening Dental Screen Date: 06/22/24 Did you have a dental visit in the last 12 months?: Yes Did you have a dental problem in the last 6 months where you did not have access to dental care?: No Was dental information given to patient?: Patient has dentist HPI Annual PE HPI Details Physical exam appointment Patient is 64-year-old gentleman with a history of diabetes, hypertension, obesity Colonoscopy was September of [address] Bates next 1 will be in 2028 lisinopril 5 mg for blood pressure control, blood pressure is elevated today at 146/88 BMI is still elevated patient is trying to lose weight His eye exam up-to-date Patient does not want to see any resource agent - Diabetes: The patient has a history of Type 2 Diabetes Mellitus, with recent A1c levels increasing from 8.3% in October to 8.9% currently. The patient is taking metformin 1 g daily but reports inadequate glycemic control. The patient has ceased smoking for eight months Health Maintenance - Smoking cessation: The patient has suc cessfully quit smoking for eight months. - Diet: The patient reports controlling diet by avoiding snacks and soda, and increasing water intake. - Vaccinations: Pneumonia vaccine (Prevn ar) to be administered during the visit. - Screening: Colonoscopy completed in [facility] 2022, next due in 2027. 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 Patient Instructions - Continue taking lisinopril and metform in as prescribed. - Start taking pioglitazone 15 mg daily as prescribed. - Monitor blood pressure at home regular ly. - Maintain a healthy diet and avoid suga ry foods and drinks. - Return for follow-up in three months w ith completed lab work. Review of Systems - General: No fever no chills - Neurological: No headaches no dizzin ess - Ear nose throat: No sore throat no hearing difficulty no ear pain - Cardiovascular: No syncope, no chest pain, no palpitations - Gastrointestinal: No nausea vomiting or diarrhea - Endocrine: No polyuria polydipsia no heat intolerance - Genitourinary: No dysuria - Skin: No new complaints Physical Exam General: Cooperative, healthy appearing, comfortable, no acute distress Orientation: Patient oriented x3 Head: Normal to inspection Ears: Within normal limit visually Nose: Normal external nose present Face and sinus: Normal facial exam Eyes: Appearance normal, extraocular movement intact pupils reactive Neck: Normal visual inspection and supple Respiratory: Normal respiratory effort and able to speak in complete sentences. Clear to auscultation, no stridor Cardiovascular: S1 and S2 RRR GI: Normal to inspection. Soft to palpation and nontender Skin: Turgor normal, no acute findings Neuro: Patient oriented x3, motor sensory intact, balance intact, tandem pass Extremities: Normal to inspection, able to perform heel-to-toe walking PFSH Medical History HTN (hypertension) Tobacco abuse Obesity (BMI 30-39.9) Diabetes 1.5, managed as type 2 History of prediabetes Surgical History H/O colonoscopy History of appendectomy Social History Housing: House Alcohol intake: current Alcohol intake frequency: holidays/special occasions only Patient Tobacco Use Status: Current everyday Tobacco user Cigarette Packs Per Day: 1 e-Cigarette/Vaping Use: Never Used service: No Current occupational status: employed 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 1. Little interest or pleasure in doing things: not at all 2. Feeling down, depressed, or hopeless: not at all 3. Trouble falling or staying asleep, or sleeping too much: nearly every day 4. Feeling tired or having little energy: not at all 5. Poor appetite or overeating: not at all 6. Feeling bad about yourself - or that you are a failure or have let yourself or your family down: more than half the days 7. Trouble concentrating on things, such as reading the newspaper or watching television: not at all 8. Moving or speaking so slowly that other people could have noticed. Or the opposite - being so fidgety or restless that you have been moving around a lot more than usual: not at all 9. Thoughts that you would be better off or of hurting yourself in some way: not at all Total score: 5 Depression Screening Interpretation: Negative Depression Screening Done: Yes 66069 - PHQ-9 Billing: Yes Source: Developed by Drs. Serafin Sanchez, Luna Guy, Teto Boyle and colleagues, with an educational swathi from [employer]. Thrive Questionnaire Date Thrive assessed: 01/15/25 I am a: Patient What is your living situation today?: I have a steady place to live Within the past 12 months, did the food you bought not last and you didn't have the money to get more?: Never true Within the past 12 months, did you worry whether your food would run out before you got money to buy more?: Never true Do you have trouble paying for medicines?: No Do you have trouble getting transportation to medical appointments?: No Do you have trouble paying your heating and electricity bill?: No Do you have trouble taking care of your child, family member or friend?: No Do you have trouble with day-to-day activities such as bathing, preparing meals, shopping, managing finances, etc.?: No Are you currently unemployed and looking for a job?: Yes Are you interested in more education?: No Please select the resources that you would like help with: None Currently or been in a relationship where the following occur: No concerns reported THRIVE Score: 0 AUDIT C Alcohol Use Questionnaire (AUDIT-C) 1. How often do you have a drink containing alcohol?: Monthly or less 2. How many drinks containing alcohol do you have on a typical day when you are drinking?: 1 or 2 3. How often do you have six or more drinks on one occasion?: Never Total Score: 1 SUSI-7 AMB Questionnaire SUSI-7 Date SUSI - 7 assessed: 04/13/24 Feeling nervous, anxious, or on edge: 0 = Not at all Not being able to stop or control worryin = Several days Worrying too much about different things: 1 = Several days Trouble relaxin = Several days Being so restless that it is hard to sit still: 1 = Several days Becoming easily annoyed or irritable: 0 = Not at all Feeling afraid as if something awful might happen: 0 = Not at all Total SUSI-7 score (0-4 normal; 5-9 mild; 10-14 moderate; 15-21 severe): 4 Source: Developed by Drs. Serafin Sanchez, Luna Guy, Teto Boyle and colleagues, with an educational swathi from [employer]. Physical exam (Primary Care) Vital Signs: Last Vital Signs Temp 96.9 F 01/15/25 11:49 Pulse 106 H 01/15/25 11:49 BP 146/88 H 01/15/25 11:49 Pulse Ox 97 01/15/25 11:49 Oxygen Delivery Method Room Air 01/15/25 11:49 BMI result Body Mass Index 36.7 Tobacco/Smoking Status: Tobacco use Status Tobacco use date assessed 01/15/25 01/15/25 11:56 Patient Tobacco Use Status Current everyday Tobacco 01/15/25 11:56 e-Cigarette/Vaping Use Never Used 01/15/25 11:56 PHQ-9: PHQ-9 Score PHQ-9: Total score 5 01/15/25 12:39 Depression Screening Interpretation: Negative Thrive Assessment: Date of Thrive Assessment Date Thrive assessed 01/15/25 01/15/25 11:58 Currently or been in a relationship where the following occur: No concerns reported Results AMB Hemoglobin A1c AMB Hemoglobin A1c 8.9 % Last Edit by Luis Gallo CMA on 01/15/25 12: 26 Immunizations pneumoc 20-isael conj-dip cr(PF) 0.5 mL IM syringe Performing Provider: Yemi Vinson MD Performing Location: [facility] Administered by: Richa Ace on 01/15/25 12:40 Dose Route Admin Location Dispensed Lot Number Expiration Date [facility] [employer] Supervisor 0.5 mL IM Left Deltoid 0.5 mL [id number] 01/04/26 [employer] Total Dispensed Waste 0.5 mL 0 % VIS Given Date VIS Provided VIS Publication Date 01/15/25 Single Vaccine 24 Eligibility Eligibility Date Funding Source Not [facility] Eligible 01/15/25 Private Results Reviewed Results Reviewed: Laboratory Last Values Hgb A1c (Clinic) 8.9 % (4.0-6.0) H 01/15/25 12:05 Coding Level of Care Code Est Pt Level 3 (83140) Est Pt Prev Care 40-64y(78979) Diagnoses Encounter for general adult medical examination with abnormal findings Z00.01 Diabetes 1.5, managed as type 2 E13.9 Hypertension, essential I10 Obesity (BMI 30-39.9) E66.9 Diverticulosis of colon without diverticulitis K57.30 Hemorrhoids, unspecified hemorrhoid type K64.9 Hemorrhoid type: unspecified Immunizations incomplete Z28.39 Additional Codes PHQ-9 - 35793 - PHQ-9 Billing: Yes ([id number]) Assessment & Plan Assessment & Plan (1) Encounter for general adult medical examination with abnormal findings: Code(s): Z00.01 - Encounter for general adult medical examination with abnormal findings Category: Medical (2) Diabetes 1.5, managed as type 2: Code(s): E13.9 - Other specified diabetes mellitus without complications Category: Medical (3) Hypertension, essential: Code(s): I10 - Essential (primary) hypertension Category: Medical (4) Obesity (BMI 30-39.9): Code(s): E66.9 - Obesity, unspecified Category: Medical (5) Diverticulosis of colon without diverticulitis: Code(s): K57.30 - Diverticulosis of large intestine without perforation or abscess without bleeding Category: Medical (6) Hemorrhoids: Code(s): K64.9 - Unspecified hemorrhoids Category: Medical Qualifiers: Hemorrhoid type: unspecified Qualified Code(s): K64.9 - Unspecified hemorrhoids (7) Immunizations incomplete: Code(s): Z28.39 - Other underimmunization status Category: Medical Plan Physical exam appointment Patient is 64-year-old gentleman with a history of diabetes, hypertension, obesity Colonoscopy was September of [address] Bates next 1 will be in 2028 lisinopril 5 mg for blood pressure control, blood pressure is elevated today at 146/88 BMI is still elevated patient is trying to lose weight His eye exam up-to-date Patient does not want to see any resource agent - Diabetes: The patient has a history of Type 2 Diabetes Mellitus, with recent A1c levels increasing from 8.3% in October to 8.9% currently. The patient is taking metformin 1 g daily but reports inadequate glycemic control. The patient has ceased smoking for eight months Health Maintenance - Smoking cessation: The patient has successfully quit smoking for eight months. - Diet: The patient reports controlling diet by avoiding snacks and soda, and increasing water intake. - Vaccinations: Pneumonia vaccine (Prevnar) to be administered during the visit. - Screening: Colonoscopy completed in September 2022, next due in 2027. Employment - Recently retired after 45 years of work, considering a new job offer. Patient Instructions - Continue taking lisinopril and metformin as prescribed. - Start taking pioglitazone 15 mg daily as prescribed. - Monitor blood pressure at home regularly. - Maintain a healthy diet and avoid sugary foods and drinks. - Return for follow-up in three months with completed lab work. Orders: Orders Hemoglobin A1c Today E13.9 - Other specified diabetes mellitus without complications, E66.9 - Obesity, unspecified, I10 - Essential (primary) hypertension, K57.30 - Diverticulosis of large intestine without perforation or abscess without bleeding, K64.9 - Unspecified hemorrhoids, Z00.01 - Encounter for general adult medical examination with abnormal findings Complete Blood Count Auto Diff Today E13.9 - Other specified diabetes mellitus without complications, E66.9 - Obesity, unspecified, I10 - Essential (primary) hypertension, K57.30 - Diverticulosis of large intestine without perforation or abscess without bleeding, K64.9 - Unspecified hemorrhoids, Z00.01 - Encounter for general adult medical examination with abnormal findings Comprehensive [place]. Panel Fast Today E13.9 - Other specified diabetes mellitus without complications, E66.9 - Obesity, unspecified, I10 - Essential (primary) hypertension, K57.30 - Diverticulosis of large intestine without perforation or abscess without bleeding, K64.9 - Unspecified hemorrhoids, Z00.01 - Encounter for general adult medical examination with abnormal findings Lipid Panel Today E13.9 - Other specified diabetes mellitus without complications, E66.9 - Obesity, unspecified, I10 - Essential (primary) hypertension, K57.30 - Diverticulosis of large intestine without perforation or abscess without bleeding, K64.9 - Unspecified hemorrhoids, Z00.01 - Encounter for general adult medical examination with abnormal findings Microalbumin, Random (w Creat) Today E13.9 - Other specified diabetes mellitus without complications, E66.9 - Obesity, unspecified, I10 - Essential (primary) hypertension, K57.30 - Diverticulosis of large intestine without perforation or abscess without bleeding, K64.9 - Unspecified hemorrhoids, Z00.01 - Encounter for general adult medical examination with abnormal findings Mumps Virus IgG Antibody Today Z28.39 - Other underimmunization status Varicella IgG Antibody Today Z28.39 - Other underimmunization status AMB Hemoglobin A1c Today Z13.9 - Encounter for screening, unspecified Rubeola IgG (Measles) Today Z28.39 - Other underimmunization status Rubella IgG Antibody Today Z28.39 - Other underimmunization status Pneumococcal 20 Immunization Today Z23 - Encounter for immunization Medications: New pioglitazone (Actos) 15 mg PO DAILY 30 tabs 0RF
--- OUTSIDE RECORDS SUMMARY | 2025-01-15 12:54 | XMS_ITS | Patient Health Record ---
Author Organization [facility] Address [address] [place] [address] Care Team Providers Care Tack Maker Name Role Phone Karel SIERRA, Asma Primary Care Provider Devon Ozuna Jr Unavailable [phone] Reason For Referral No Information Medications Medication SIG (Take, Route, Fr equency, Duration) Notes Start Date End Date Status MoviPrep 100 GM as directed before c olonoscopy Orally for 1 dose 09/13/2012 07/18/2024 Active Problems Problem Type SNOMED Code ICD Code Onset Dates Problem Status W/U Status Risk Notes Problem Screening for colorectal cancer (V76.51) Active confirmed Plan Of Treatment Future Test Test Name Order Date COLONOSCOPY 09/13/2012 Insurance Providers Payer Name Payer Address Payer Phone Subscriber Number Group Number Insured Name Patient Relationship to Insured Coverage Start Date Coverage End Date [facility] [address] [place] [id number] LONDON COHN Self - patient is the insured Medical (General) History Medical History History ICD Code Denies [place],DM,CVA,Lung disease,renal dise ase Hx. of malignant hyperthermia Surgical History Surgery Date(Month/Year) Broken finger
== END 2025-01-15 12:33 | disposition home or self-care (01) ==
LOC: HO.HMCC 11:42
PROVIDERS: PCP Internal Medicine; Visit Provider Internal Medicine
DX: Z00.01 Encounter for general adult medical examination with abnormal findings (principal); E13.9 Other specified diabetes mellitus without complications; E66.9 Obesity, unspecified; Z68.36 Body mass index [BMI] 36.0-36.9, adult; I10 Essential (primary) hypertension; K57.30 Diverticulosis of large intestine without perforation or abscess without bleeding; K64.9 Unspecified hemorrhoids; Z28.39 Other underimmunization status; Z23 Encounter for immunization

== ENCOUNTER → 2025-01-15 11:41 | Outpatient (BNVA) | payer OTHER, SELFPAY | PROVIDERS: PCP Internal Medicine; Visit Provider Internal Medicine | DX: Z00.01 Encounter for general adult medical examination with abnormal findings (principal); I10 Essential (primary) hypertension; E66.9 Obesity, unspecified; E13.9 Other specified diabetes mellitus without complications; K57.30 Diverticulosis of large intestine without perforation or abscess without bleeding; K64.9 Unspecified hemorrhoids; Z23 Encounter for immunization; Z28.39 Other underimmunization status; Z68.36 Body mass index [BMI] 36.0-36.9, adult; Z79.899 Other long term (current) drug therapy | CPT/HCPCS: 83036; 90471; 90677; 96127 ==

== ENCOUNTER 2025-03-28 06:55 | Outpatient (REF) | payer OTHER, SELFPAY ==
--- OUTSIDE RECORDS SUMMARY | 2025-03-28 07:00 | XMS_ITS | Patient Health Record ---
Author Organization [facility] Address [address] [place] [address] Care Team Providers Care Wire Splicer Name Role Phone Karel SIERRA, Asma Primary Care Provider Devon Ozuna Jr Unavailable [phone] Reason For Referral No Information Medications Medication SIG (Take, Route, Fr equency, Duration) Notes Start Date End Date Status MoviPrep 100 GM as directed before c olonoscopy Orally for 1 dose 09/13/2012 07/18/2024 Active Problems Problem Type SNOMED Code ICD Code Onset Dates Problem Status W/U Status Risk Notes Problem Screening for malignant neoplasm of colon ([id number]) Screening for colorectal cancer (V76.51) Active confirmed Plan Of Treatment Future Test Test Name Order Date COLONOSCOPY 09/13/2012 Insurance Providers Payer Name Payer Address Payer Phone Subscriber Number Group Number Insured Name Patient Relationship to Insured Coverage Start Date Coverage End Date [facility] [address] [place] [id number] LONDON COHN Self - patient is the insured Medical (General) History Medical History History ICD Code Denies [place],DM,CVA,Lung disease,renal dise ase Hx. of malignant hyperthermia Surgical History Surgery Date(Month/Year) Broken finger
[2025-03-28 10:16] LABS: MANUAL DIFF FLAG NO
[2025-03-28 10:20] LABS: Hematocrit 45.4 % (42.0-52.0); Hemoglobin 15.0 g/dl (14.0-18.0); Mean Corpuscular HGB Conc 33.0 g/dl (31.0-36.0); Mean Corpuscular Hemoglobin 28.6 pg (27.0-33.0); Mean Corpuscular Volume 86.6 fL (80.0-98.0); Red Blood Count 5.24 X10*6/uL (4.60-5.80); White Blood Count 6.6 X10*3/uL (4.8-10.8)
[2025-03-28 10:21] LABS: Imm Gran Abs Auto 0.03 X10*3/uL (0.00-0.03); Imm Gran Pct Auto 0.5 % (0.0-0.4); Lymphocytes Absolute Auto 2.5 X10*3/uL (1.2-4.9); NRBC Abs Auto 0.000 X10*3/uL (0.0-0.012); NRBC Pct Auto 0.0 /100WBC (0.0-0.2); Platelet Count 275 X10*3/uL (160-400)
[2025-03-28 10:25] LABS: Hemoglobin A1C 236.1537 umol/L; Total Hemoglobin (HGBA1C) 3758.3695 umol/L
[2025-03-28 11:37] LABS: Alanine Aminotransferase 45 U/L (0-40); Albumin Level 4.3 g/dL (3.5-5.0); Alkaline Phosphatase 50 U/L (39-117); Anion Gap 13 (12-20); Aspartate Amino Transferase 51 U/L (5-37); Blood Urea Nitrogen 12 mg/dL (9-16); Calcium 9.4 mg/dL (8.4-10.2); Carbon Dioxide 22 mmol/L (22-29); Chloride 106 mmol/L (96-108); Cholesterol 173 mg/dL (<200); Estimated Glomerular Filt Rate > 60; HDL Cholesterol 37 mg/dL (>40); Potassium 4.0 mmol/L (3.3-5.1); Sodium 137 mmol/L (135-145); Total Protein 7.8 g/dL (6.5-8.0); Triglycerides 217 mg/dL (<150)
[2025-03-28 11:58] LABS: Microalbum/Creatinine Ratio Ur 16.3 ug/mg cr (<30)
[2025-03-29 06:27] LABS: Rubeola IgG (Measles) 109.00 AU/mL
== END 2025-03-28 06:56 | disposition home or self-care (01) ==
LOC: HO.HMGCLDS 06:55
PROVIDERS: PCP Internal Medicine; Visit Provider Internal Medicine
DX: Z00.01 Encounter for general adult medical examination with abnormal findings (principal); E13.9 Other specified diabetes mellitus without complications; I10 Essential (primary) hypertension; E66.9 Obesity, unspecified; K57.30 Diverticulosis of large intestine without perforation or abscess without bleeding; K64.9 Unspecified hemorrhoids; Z28.39 Other underimmunization status
CPT/HCPCS: 36415; 80053; 80061; 82043; 82570; 83036; 85025; 86735; 86762; 86765; 86787

== ENCOUNTER 2025-04-23 09:54 | Outpatient (AMB) | payer OTHER, SELFPAY ==
[2025-04-23 10:03] VITALS: BP 112/80; PULSE 88; O2SAT 96; BMI 37.1
--- NOTE | 2025-04-23 10:03 | A.OFFPC_ITS ---
Vital Signs 04/23/25 10:03 Height 5 ft 7 in Weight 237 lb BMI 37.1 BP 112/80 Blood Pressure Location Lt brachial Position Sitting Pulse 88 Pulse Source Pulse Oximeter Pulse Oximetry (%) 96 Oxygen Delivery Method Room Air Intake Visit Reasons: 3 months f/up Allergies No Known Allergies (No Known Allergies*) Allergy (Verified 04/23/25 10:03) Medication List - Last Reconciled 04/23/25 by Yemi Vinson MD lisinopril 5 mg PO DAILY 90 days metformin 1,000 mg PO DAILY 90 days pioglitazone (Actos) 15 mg PO DAILY Tobacco use date assessed: 01/15/25 Dental Screening Dental Screen Date: 04/23/25 Did you have a dental visit in the last 12 months?: Yes Did you have a dental problem in the last 6 months where you did not have access to dental care?: No Was dental information given to patient?: Patient has dentist HPI 3 months f/up HPI Details History The patient is a 64-year-old male presenting with diabetes management, hypertension management, lipid management, smoking cessation, assessment of vaccination status, review of medication regimen, and consideration of weight loss interventions. Diabetes Mellitus Type 2: - The patient reported challenges in man aging blood glucose levels, which was exacerbated by inactivity during a period of usp. - Description: Evaluation of improvement s in hemoglobin A1c, reduction from 8.9% to 7.9%. - Past issues: History of elevated blood sugar leading to proteinuria. - Current status: Improvement noted in b lood sugar control, contributing to normalized urine protein levels. Hypertension: - Associated with stress related to occu pational changes. - Past incident: Elevated blood pressure noted due to high-stress events, such as being asked to return to a demanding work role. - Ongoing management with lisinopril. Hyperlipidemia: - Notable improvement in cholesterol lev els, LDL recorded at 93 mg/dL. - Past management approaches unspecified , but current results reflect significant control. Smoking Cessation: - Reported history of smoking with signi ficant reduction over the past year. - Current status: Approximately 30 cigar ettes in a year, predominantly in social drinking contexts. Vaccination Status: - Recent vaccinations include Shingles ( 2022) and pneumonia (January of the past year), with tetanus received in 2017. - Inquiry about additional vaccines like RSV and annual flu shot, reinforced by past frequent flu-related illnesses. Weight Management: - Interest expressed in weight loss stra tegies, including the possibility of weight loss injections. - Previous discussions of weight gain as sociated with periods of inactivity. 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 - Smoking: Significant reduction reporte d, currently limited to occasional social settings with a strong commitment to cessation. - Exercise: Engages in physical activity correlated with job responsibilities, previous physical inactivity led to adverse health outcomes. - Weight Management: Episodes of weight gain during usp, active engagement in reducing weight.. Problem List - Diabetes Mellitus Type 2 - Hypertension - Hyperlipidemia - Smoking Cessation - Arthritis (noted as a history of devel oping arthritis in knee) Diagnostic results - Labs: - Hemoglobin A1c improved to 7.9 % from 8.9%. - LDL cholesterol satisfactory at 93 mg/ dL. - Liver enzymes elevated but stable. - Kidney function and electrolyte tests within normal limits with noted improvement in urine protein level to normal following previous spills due to uncontrolled diabetes. Plan - Administer the flu vaccination during the visit due to the patient's history of recurrent flu. - Discussed the potential benefits and r isks of RSV vaccination given recent developments, especially considering the patient's diabetes and compromised immune status. - Continue current diabetic medications, and arrange for follow-up to assess further improvement in hemoglobin A1c levels and overall glucose management. - Maintain antihypertensive regimen with lisinopril for continued blood pressure control. - Encourage ongoing lipid monitoring giv en current satisfactory levels and past challenges with hyperlipidemia. - Reinforce smoking cessation efforts, e mphasizing the major reduction in smokin g frequency and its positive impact on health. - Monitor and potentially initiate weigh t loss injections, pending insurance coverage, with emphasis on associated risks such as gastrointestinal symptoms and rare risks of pancreatic and thyroid issues. - Conduct a nursing visit for injection training if weight loss injections are commenced. - Schedule follow-up appointment to betzy hernandez progress with all conditions, including arthritis management. Review of Systems General: No fever no chills neurological: No headaches no dizziness ear nose throat: No sore throat no hearing difficulty no ear pain cardiovascular: No syncope, no chest pain, no palpitations gastrointestinal: No nausea vomiting or diarrhea endocrine: No polyuria polydipsia no heat intolerance genitourinary: No dysuria skin: No new complaints Physical Exam general: No acute distress HEENT: No acute findings neck: Supple respiratory system: Able to talk in full sentences, no audible wheeze, no stridor cardiovascular: S1-S2 RRR, no chest pains, no shortness of breath gastrointestinal: No pain extremities: No new findings, no swelling NUT ORCHARDIST: Alert, awake, oriented x3, motor sensory intact skin: Normal turgor [facility] Medical History HTN (hypertension) Tobacco abuse Obesity (BMI 30-39.9) Diabetes 1.5, managed as type 2 History of prediabetes Surgical History H/O colonoscopy History of appendectomy Social History Housing: House Alcohol intake: current Alcohol intake frequency: holidays/special occasions only Patient Tobacco Use Status: Current everyday Tobacco user Cigarette Packs Per Day: 1 e-Cigarette/Vaping Use: Never Used service: No Current occupational status: employed 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 1. Little interest or pleasure in doing things: not at all 2. Feeling down, depressed, or hopeless: not at all 3. Trouble falling or staying asleep, or sleeping too much: nearly every day 4. Feeling tired or having little energy: not at all 5. Poor appetite or overeating: not at all 6. Feeling bad about yourself - or that you are a failure or have let yourself or your family down: more than half the days 7. Trouble concentrating on things, such as reading the newspaper or watching television: not at all 8. Moving or speaking so slowly that other people could have noticed. Or the opposite - being so fidgety or restless that you have been moving around a lot more than usual: not at all 9. Thoughts that you would be better off or of hurting yourself in some way: not at all Total score: 5 Depression Screening Interpretation: Negative Depression Screening Done: Yes 43550 - PHQ-9 Billing: Yes Source: Developed by Drs. Serafin Sanchez, Luna Guy, Teto Boyle and colleagues, with an educational swathi from [employer]. Thrive Questionnaire Date Thrive assessed: 01/15/25 I am a: Patient What is your living situation today?: I have a steady place to live Within the past 12 months, did the food you bought not last and you didn't have the money to get more?: Never true Within the past 12 months, did you worry whether your food would run out before you got money to buy more?: Never true Do you have trouble paying for medicines?: No Do you have trouble getting transportation to medical appointments?: No Do you have trouble paying your heating and electricity bill?: No Do you have trouble taking care of your child, family member or friend?: No Do you have trouble with day-to-day activities such as bathing, preparing meals, shopping, managing finances, etc.?: No Are you currently unemployed and looking for a job?: Yes Are you interested in more education?: No Please select the resources that you would like help with: None Currently or been in a relationship where the following occur: No concerns reported THRIVE Score: 0 AUDIT C Alcohol Use Questionnaire (AUDIT-C) 1. How often do you have a drink containing alcohol?: Monthly or less 2. How many drinks containing alcohol do you have on a typical day when you are drinking?: 1 or 2 3. How often do you have six or more drinks on one occasion?: Never Total Score: 1 SUSI-7 AMB Questionnaire SUSI-7 Date SUSI - 7 assessed: 04/23/25 Feeling nervous, anxious, or on edge: 0 = Not at all Not being able to stop or control worryin = Several days Worrying too much about different things: 1 = Several days Trouble relaxin = Several days Being so restless that it is hard to sit still: 1 = Several days Becoming easily annoyed or irritable: 0 = Not at all Feeling afraid as if something awful might happen: 0 = Not at all Total SUSI-7 score (0-4 normal; 5-9 mild; 10-14 moderate; 15-21 severe): 4 Source: Developed by Drs. Serafin Sanchez, Luna Guy, Teto Boyle and colleagues, with an educational swathi from [employer]. SUSI-7 Assessment Billing SUSI-7 Assessment Tool: SUSI-7 Assessment 01543 Physical exam (Primary Care) Vital Signs: Last Vital Signs Pulse 88 04/23/25 10:03 BP 112/80 04/23/25 10:03 Pulse Ox 96 04/23/25 10:03 Oxygen Delivery Method Room Air 04/23/25 10:03 BMI result Body Mass Index 37.1 Tobacco/Smoking Status: Tobacco use Status Tobacco use date assessed 01/15/25 04/23/25 10:05 Patient Tobacco Use Status Current everyday Tobacco 04/23/25 10:05 e-Cigarette/Vaping Use Never Used 04/23/25 10:05 PHQ-9: PHQ-9 Score PHQ-9: Total score 5 04/23/25 10:34 Depression Screening Interpretation: Negative Thrive Assessment: Date of Thrive Assessment Date Thrive assessed 01/15/25 04/23/25 10:05 Currently or been in a relationship where the following occur: No concerns repor hari Office Procedures Flu Questionnaire Does the patient have a severe egg allergy?: No Does the patient have severe life threatening allergies?: No Does the patient have a fever or illness today?: No Has the patient ever had Guillain-Seth Syndrome?: No Has the patient ever had any past reaction to a flu shot?: No Immunizations Fluarix [id number] (PF) 45 mcg (15 mcg x 3)/0.5 mL IM syringe Performing Provider: Yemi Vinson MD Performing Location: [facility] Administered by: Luis Gallo CMA on 04/23/25 10:34 Dose Route Admin Location Dispensed Lot Number Expiration Date [facility] 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 0.5 mL IM Right Deltoid 0.5 mL [id number] 01/14/26 [id number] [employer] VIS Given Date VIS Provided VIS Publication Date 04/23/25 Single Vaccine 24 Eligibility Eligibility Date Funding Source Not [facility] Eligible 04/23/25 Private Coding Level of Care Code Est Pt Level 4 (87332) Diagnoses Diabetes 1.5, managed as type 2 E13.9 Obesity (BMI 30-39.9) E66.9 Hypertension, essential I10 Immunizations incomplete Z28.39 Additional Codes SUSI-7 Assessment Billing - SUSI-7 Assessment Tool: SUSI-7 Assessment 61844 ([id number]) PHQ-9 - 82447 - PHQ-9 Billing: Yes ([id number]) Assessment & Plan Assessment & Plan (1) Diabetes 1.5, managed as type 2: Code(s): E13.9 - Other specified diabetes mellitus without complications Category: Medical (2) Obesity (BMI 30-39.9): Code(s): E66.9 - Obesity, unspecified Category: Medical (3) Hypertension, essential: Code(s): I10 - Essential (primary) hypertension Category: Medical (4) Immunizations incomplete: Code(s): Z28.39 - Other underimmunization status Category: Medical Plan History The patient is a 64-year-old male presenting with diabetes management, hypertension management, lipid management, smoking cessation, assessment of vaccination status, review of medication regimen, and consideration of weight loss interventions. Diabetes Mellitus Type 2: - The patient reported challenges in managing blood glucose levels, which was exacerbated by inactivity during a period of usp. - Description: Evaluation of improvements in hemoglobin A1c, reduction from 8.9% to 7.9%. - Past issues: History of elevated blood sugar leading to proteinuria. - Current status: Improvement noted in blood sugar control, contributing to normalized urine protein levels. Hypertension: - Associated with stress related to occupational changes. - Past incident: Elevated blood pressure noted due to high-stress events, such as being asked to return to a demanding work role. - Ongoing management with lisinopril. Hyperlipidemia: - Notable improvement in cholesterol levels, LDL recorded at 93 mg/dL. - Past management approaches unspecified, but current results reflect significant control. Smoking Cessation: - Reported history of smoking with significant reduction over the past year. - Current status: Approximately 30 cigarettes in a year, predominantly in social drinking contexts. Vaccination Status: - Recent vaccinations include Shingles (2022) and pneumonia (January of the past year), with tetanus received in 2018. - Inquiry about additional vaccines like RSV and annual flu shot, reinforced by past frequent flu-related illnesses. Weight Management: - Interest expressed in weight loss strategies, including the possibility of weight loss injections. - Previous discussions of weight gain associated with periods of inactivity. 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 - Smoking: Significant reduction reported, currently limited to occasional social settings with a strong commitment to cessation. - Exercise: Engages in physical activity correlated with job responsibilities, previous physical inactivity led to adverse health outcomes. - Weight Management: Episodes of weight gain during usp, active engagement in reducing weight.. Problem List - Diabetes Mellitus Type 2 - Hypertension - Hyperlipidemia - Smoking Cessation - Arthritis (noted as a history of developing arthritis in knee) Diagnostic results - Labs: - Hemoglobin A1c improved to 7.9% from 8.9%. - LDL cholesterol satisfactory at 93 mg/dL. - Liver enzymes elevated but stable. - Kidney function and electrolyte tests within normal limits with noted improvement in urine protein level to normal following previous spills due to uncontrolled diabetes. Plan - Administer the flu vaccination during the visit due to the patient's history of recurrent flu. - Discussed the potential benefits and risks of RSV vaccination given recent developments, especially considering the patient's diabetes and compromised immune status. - Continue current diabetic medications, and arrange for follow-up to assess further improvement in hemoglobin A1c levels and overall glucose management. - Maintain antihypertensive regimen with lisinopril for continued blood pressure control. - Encourage ongoing lipid monitoring given current satisfactory levels and past challenges with hyperlipidemia. - Reinforce smoking cessation efforts, emphasizing the major reduction in smoking frequency and its positive impact on health. - Monitor and potentially initiate weight loss injections, pending insurance coverage, with emphasis on associated risks such as gastrointestinal symptoms and rare risks of pancreatic and thyroid issues. - Conduct a nursing visit for injection training if weight loss injections are commenced. - Schedule follow-up appointment to monitor progress with all conditions, including arthritis management. f/u 4 M Orders: Orders Influenza [id number] Immunization Today Z23 - Encounter for immunization Medications: New Wegovy (semaglutide (weight loss)) administer weeks 1 through 4 of therapy 0.25 mg (0.5 mL) subcut QWEEK 2 mL 0RF NS E13.9 - Other specified diabetes mellitus without complications, E66.9 - Obesity, unspecified
--- OUTSIDE RECORDS SUMMARY | 2025-04-23 11:30 | XMS_ITS | Patient Health Record ---
Author Organization [facility] Address [address] [place] [address] Care Team Providers Care Furnace Reliner Name Role Phone Karel SIERRA, Asma Primary Care Provider Devon Ozuna Jr Unavailable [phone] Reason For Referral No Information Medications Medication SIG (Take, Route, Fr equency, Duration) Notes Start Date End Date Status MoviPrep 100 GM as directed before c olonoscopy Orally for 1 dose 09/13/2012 07/18/2024 Active Problems Problem Type SNOMED Code ICD Code Onset Dates Problem Status W/U Status Risk Notes Problem Screening for malignant neoplasm of colon (317842434) Screening for colorectal cancer (V76.51) Active confirmed Plan Of Treatment Future Test Test Name Order Date COLONOSCOPY 09/13/2012 Insurance Providers Payer Name Payer Address Payer Phone Subscriber Number Group Number Insured Name Patient Relationship to Insured Coverage Start Date Coverage End Date [facility] [facility] [address] [place] [id number] LONDON COHN Self - patient is the insured Medical (General) History Medical History History ICD Code Denies PA,DM,CVA,Lung disease,renal dise ase Hx. of malignant hyperthermia Surgical History Surgery Date(Month/Year) Broken finger
== END 2025-04-23 10:46 | disposition home or self-care (01) ==
LOC: HO.HMCC 09:55
PROVIDERS: PCP Internal Medicine; Visit Provider Internal Medicine
DX: I10 Essential (primary) hypertension (principal); E13.9 Other specified diabetes mellitus without complications; Z68.37 Body mass index [BMI] 37.0-37.9, adult; E66.9 Obesity, unspecified; Z28.39 Other underimmunization status; Z23 Encounter for immunization

== ENCOUNTER → 2025-04-23 09:54 | Outpatient (BNVA) | payer OTHER, SELFPAY | PROVIDERS: PCP Internal Medicine; Visit Provider Internal Medicine | DX: I10 Essential (primary) hypertension (principal); E13.9 Other specified diabetes mellitus without complications; E78.5 Hyperlipidemia, unspecified; E66.9 Obesity, unspecified; Z23 Encounter for immunization; Z68.37 Body mass index [BMI] 37.0-37.9, adult | CPT/HCPCS: 90471; 90656; 96127 ==

== ENCOUNTER 2025-06-18 07:50 | Outpatient (AMB) | payer OTHER, SELFPAY ==
--- NOTE | 2025-06-18 08:01 | MHC.PC.OV ---
Vital Signs 06/18/25 08:02 Height 5 ft 7 in Weight 235 lb BMI 36.8 BP 114/82 Blood Pressure Location Lt brachial Position Sitting Pulse 88 Pulse Source Pulse Oximeter Temp 98.2 F Temp Source Oral Pulse Oximetry (%) 98 Oxygen Delivery Method Room Air Intake Visit Reasons: weight loss follow up Field Assistant Required: No Accompanied by: Self / Same As Patient Allergies No Known Allergies (No Known Allergies*) Allergy (Verified 04/23/25 10:03) Medication List - Last Reconciled 06/18/25 by Yemi Vinson MD lisinopril 5 mg PO DAILY 90 days metformin 1,000 mg PO DAILY 90 days pioglitazone (Actos) 15 mg PO DAILY Wegovy (semaglutide (weight loss)) 0.25 mg (0.5 mL) subcut QWEEK NS Tobacco use date assessed: 06/18/25 Fall risk assessment: No Falls in past year Last assessed Fall Risk: 06/18/25 Dental Screening Dental Screen Date: 04/23/25 HPI HPI Comments History of Present Illness Details History of Present Illness The patient is a 65 year old individual presenting for a follow-up visit for weight management on Wegovy. Obesity: - The patient started taking Wegovy 0.25 mg weekly injections for weight loss in May. - The patient denies any side effects such as headaches, nausea, constipation, or cramping. - The patient reports a decrease in appetite, noting an ability to eat only half of a typical restaurant meal. - The patient reports a 2-pound weight loss over the past month. - The patient's weight in June of the previous year was 226 pounds and 234 pounds in January of the current year. - The patient engages in walking four days a week for 25 minutes, covering one mile. Medical History: - Obesity Medications: - Wegovy 0.25 mg weekly injection for weight loss. 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 1. Little interest or pleasure in doing things: not at all 2. Feeling down, depressed, or hopeless: not at all 3. Trouble falling or staying asleep, or sleeping too much: not at all 4. Feeling tired or having little energy: not at all 5. Poor appetite or overeating: not at all 6. Feeling bad about yourself - or that you are a failure or have let yourself or your family down: not at all 7. Trouble concentrating on things, such as reading the newspaper or watching television: not at all 8. Moving or speaking so slowly that other people could have noticed. Or the opposite - being so fidgety or restless that you have been moving around a lot more than usual: not at all 9. Thoughts that you would be better off or of hurting yourself in some way: not at all Total score: 0 Depression Screening Interpretation: Negative Depression Screening Done: Yes 84339 - PHQ-9 Billing: Yes Source: Developed by Drs. Serafin Sanchez, Luna Guy, Teto Boyle and colleagues, with an educational swathi from [employer]. Thrive Questionnaire Date Thrive assessed: 01/15/25 I am a: Patient What is your living situation today?: I have a steady place to live Within the past 12 months, did the food you bought not last and you didn't have the money to get more?: Never true Within the past 12 months, did you worry whether your food would run out before you got money to buy more?: Never true Do you have trouble paying for medicines?: No Do you have trouble getting transportation to medical appointments?: No Do you have trouble paying your heating and electricity bill?: No Do you have trouble taking care of your child, family member or friend?: No Do you have trouble with day-to-day activities such as bathing, preparing meals, shopping, managing finances, etc.?: No Are you currently unemployed and looking for a job?: Yes Are you interested in more education?: No Please select the resources that you would like help with: None Currently or been in a relationship where the following occur: No concerns reported THRIVE Score: 0 SUSI-7 AMB Questionnaire SUSI-7 Date SUSI - 7 assessed: 06/18/25 Feeling nervous, anxious, or on edge: 0 = Not at all Not being able to stop or control worryin = Not at all Worrying too much about different things: 0 = Not at all Trouble relaxin = Not at all Being so restless that it is hard to sit still: 0 = Not at all Becoming easily annoyed or irritable: 0 = Not at all Feeling afraid as if something awful might happen: 0 = Not at all Total SUSI-7 score (0-4 normal; 5-9 mild; 10-14 moderate; 15-21 severe): 0 Source: Developed by Drs. Serafin Sanchez, Luna Guy, Teto Boyle and colleagues, with an educational swathi from [employer]. SUSI-7 Assessment Billing SUSI-7 Assessment Tool: SUSI-7 Assessment 48055 Review of Systems Narrative Review of Systems - General: No fever no chills - Neurological: No headaches no dizziness - Ear nose throat: No sore throat no hearing difficulty no ear pain - Cardiovascular: No syncope, no chest pain, no palpitations - Gastrointestinal: No nausea vomiting or diarrhea - Endocrine: No polyuria polydipsia no heat intolerance - Genitourinary: No dysuria , no blood in urine Physical exam (Primary Care) Vital Signs: Last Vital Signs Temp 98.2 F 06/18/25 08:02 Pulse 88 06/18/25 08:02 BP 114/82 06/18/25 08:02 Pulse Ox 98 06/18/25 08:02 Oxygen Delivery Method Room Air 06/18/25 08:02 BMI result Body Mass Index 36.8 Tobacco/Smoking Status: Tobacco use Status Tobacco use date assessed 01/15/25 04/23/25 10:05 Patient Tobacco Use Status Current everyday Tobacco 04/23/25 10:05 e-Cigarette/Vaping Use Never Used 04/23/25 10:05 Depression Screening Interpretation: Negative Thrive Assessment: Date of Thrive Assessment Date Thrive assessed 01/15/25 04/23/25 10:05 Currently or been in a relationship where the following occur: No concerns reported Narrative Physical Exam - General: No acute distress - HEENT: No acute findings - Neck: Supple - Respiratory system: Able to talk in full sentences, no audible wheeze - Cardiovascular: S1-S2 regular in rate and rhythm - Gastrointestinal: No pain - Extremities: No new findings - PLASTICS SUPERVISOR: Alert awake oriented x3 motor intact - Skin: Normal turgor Coding Level of Care Code Est Pt Level 3 (58469) Diagnoses Obesity (BMI 30-39.9) E66.9 Additional Codes SUSI-7 Assessment Billing - SUSI-7 Assessment Tool: SUSI-7 Assessment 83306 ([id number]) PHQ-9 - 89677 - PHQ-9 Billing: Yes ([id number]) Assessment & Plan Assessment & Plan (1) Obesity (BMI 30-39.9): Code(s): E66.9 - Obesity, unspecified Category: Medical Plan Problem List - Obesity Plan - The dose of Wegovy will be increased to 0.5 mg weekly. - Refills for the medication have been provided. - The patient is advised to continue efforts with meal planning, portion control, and exercise, with a suggestion to consider a gym membership for the winter. - The weight loss goal is at least 10 pounds by the next visit. - A follow-up appointment is scheduled for August. Medications: Changed From Wegovy (semaglutide (weight loss)) administer weeks 1 through 4 of therapy 0.25 mg (0.5 mL) subcut QWEEK 2 mL 0RF NS E13.9 - Other specified diabetes mellitus without complications, E66.9 - Obesity, unspecified To semaglutide (weight loss) administer weeks 1 through 4 of therapy 0.5 mg (0.5 mL) subcut QWEEK 2.5 mL 2RF 30 days E13.9 - Other specified diabetes mellitus without complications, E66.9 - Obesity, unspecified
[2025-06-18 08:02] VITALS: BP 114/82; PULSE 88; TEMP 36.8; O2SAT 98; BMI 36.8
== END 2025-06-18 08:37 | disposition home or self-care (01) ==
LOC: HO.HMCC 07:50
PROVIDERS: PCP Internal Medicine; Visit Provider Internal Medicine
DX: E66.9 Obesity, unspecified (principal); Z68.36 Body mass index [BMI] 36.0-36.9, adult

== ENCOUNTER → 2025-06-18 07:50 | Outpatient (BNVA) | payer OTHER, SELFPAY | PROVIDERS: PCP Internal Medicine; Visit Provider Internal Medicine | DX: I10 Essential (primary) hypertension (principal); E66.9 Obesity, unspecified; E13.9 Other specified diabetes mellitus without complications; Z68.36 Body mass index [BMI] 36.0-36.9, adult | CPT/HCPCS: 96127 ==